=== PATIENT | female | born 1930 | race Caucasian/White ===

== ENCOUNTER 2018-06-02 16:54 | Inpatient (IN) | payer MEDICARE, BC ==
[2018-06-02 18:58] LABS: Hematocrit 36 % (35-47); Hemoglobin 11.9 g/dl (12.0-16.0); Mean Corpuscular HGB Conc 33 g/dl (31-36); Mean Corpuscular Hemoglobin 30 pg (27-31); Mean Corpuscular Volume 91 fL (80-97); Mean Platelet Volume 8.1 fL (7.4-10.4); Platelet Count 286 10^3/ul (150-450); Red Blood Count 3.95 10^6/ul (4.00-5.40); Red Cell Distribution Width 15 % (10.5-15); White Blood Count 5.6 10^3/ul (3.5-10.8)
[2018-06-02 19:02] LABS: Influenza A Molecular NEGATIVE (Negative); Influenza B Molecular NEGATIVE (Negative)
[2018-06-02 19:06] LABS: INR 0.94 (0.77-1.02)
[2018-06-02 19:16] LABS: Albumin 3.8 g/dL (3.2-5.2); Albumin/Globulin Ratio 1.4 (1-3); BUN/Creatinine Ratio 16.5 (8-20); C Reactive Protein 4.64 mg/L (<8.01); Calcium 9.2 mg/dL (8.6-10.3); EGFR African American 61.3 (>60); EGFR Non-African American 50.7 (>60); Globulin 2.7 g/dL (2-4); Potassium 4.4 mmol/L (3.5-5.0); Total Bilirubin 0.3 mg/dL (0.2-1.0); Total Protein 6.5 g/dL (6.4-8.9)
--- NOTE | 2018-06-02 19:21 | ED ---
Shortness of Breath - HPI Summary HPI Summary: Patient complains of 2 episodes of shortness of breath, one episode 2 days ago at night while trying to sleep, and one this morning. Patient states first episode was resolved with Ativan. Today's episode self resolved. No active shortness of breath here in the ED. Patient states shortness of breath is not related to exertion, has random onset. Patient denies fever, cough, sore throat , CP, N/V/D, abdominal pain, change in urine, change in BM. Patient does admit to some anxiety as her recently and her daughter recently moved out to live with boyfriend. Patient admits to anxiety over being left on her own but is clear whether shortness of breath proceeds is secondary to anxiety or anxiety secondary to shortness of breath. Medical history is PAD, HTN, HDL, osteoporosis, prior DVT. Patient no longer on Plavix, taking only baby aspirin a day. - History of Current Complaint Chief Complaint: EDShortnessOfBreath Time Seen by Provider: 06/02/18 17:45 Hx Obtained From: Patient Onset/Duration: Sudden Onset, Lasting Hours Timing: Intermittent Episodes Lasting: Current Severity: None Dyspnea At: Rest Alleviating Factors: Other Associated Signs & Symptoms: Negative - Allergy/Home Medications Allergies/Adverse Reactions: Allergies Allergy/AdvReac Type Severity Reaction Status Date / Time ibuprofen Allergy Itching Verified 06/02/18 22:36 Penicillins Allergy Rash Verified 06/02/18 22:36 Sulfa (Sulfonamide Allergy Rash Verified 06/02/18 22:36 Antibiotics) vancomycin Allergy Hives Verified 06/02/18 22:36 antibacterial soaps Allergy Hives Uncoded 06/02/18 22:36 Home Medications: Home Medications Aspirin EC TAB* [Ecotrin EC Low Dose 81 MG*] 81 mg PO DAILY 06/02/18 [History Confirmed 06/02/18] Famotidine TAB* [Pepcid 20 MG TAB*] 20 mg PO DAILY PRN 06/02/18 [History Confirmed 06/02/18] LORazepam TAB(*) [Ativan 0.5 MG TAB (*)] 0.5 mg PO BEDTIME PRN 06/02/18 [ History Confirmed 06/02/18] Lisinopril TAB* [Prinivil TAB*] 20 mg PO DAILY 06/02/18 [History Confirmed 06/02] Pantoprazole TAB * [Protonix TAB*] 40 mg PO QPM 06/02/18 [History Confirmed 12/11] Risedronate (NF) [Actonel (NF)] 150 mg PO MONTHLY 06/02/18 [History Confirmed ] Simvastatin (NF) [Zocor (NF)] 40 mg PO QPM 06/02/18 [History Confirmed 06/02/18] PMH/Surg Hx/FS Hx/Imm Hx Endocrine/Hematology History: Denies: Hx Anticoagulant Therapy, Hx Diabetes, Hx Thyroid Disease Cardiovascular History: Reports: Hx Coronary Artery Disease, Hx Hypercholesterolemia, Hx Hypertension - ON MEDS Denies: Hx Congestive Heart Failure Respiratory History: Reports: Hx Seasonal Allergies Denies: Hx Asthma, Hx Chronic Obstructive Pulmonary Disease (COPD) GI History: Reports: Hx Gall Bladder Disease, Hx Gastroesophageal Reflux Disease , Hx Obstructive Bowel, Other GI Disorders - SBO Denies: Hx Ulcer History: Denies: Hx Renal Disease Musculoskeletal History: Reports: Hx Arthritis, Hx Rheumatoid Arthritis, Hx Osteoporosis Sensory History: Reports: Hx Contacts or Glasses, Hx Vision Problem Denies: Hx Deafness Opthamlomology History: Reports: Hx Contacts or Glasses, Hx Vision Problem Psychiatric History: Reports: Hx Anxiety - Cancer History Hx Chemotherapy: No Hx Radiation Therapy: No - Surgical History Surgery Procedure, Year, and Place: SALVIARY GLAND REMOVED-SKY 1999; cholecystectomy, hysterectomy; cataracts;. total knee replacements (right and left)-2007 [facility]. BLOOD CLOT REMOVED FROM L LEG 05/2013. Left popliteal artery bypass Hx Anesthesia Reactions: No Infectious Disease History: No Infectious Disease History: Reports: Hx Shingles Denies: Hx Hepatitis, Hx Human Immunodeficiency Virus (HIV), Traveled Outside the [place] in Last 30 Days - Social History Alcohol Use: None Alcohol Amount: occ beer Substance Use Type: Reports: None Hx Tobacco Use: Yes Smoking Status (MU): Never Smoked Tobacco Have You Smoked in the Last Year: No Review of Systems Constitutional: Negative Eyes: Negative ENT: Negative Cardiovascular: Negative Positive: Shortness Of Breath Gastrointestinal: Negative Genitourinary: Negative Musculoskeletal: Negative Skin: Negative Neurological: Negative Psychological: Normal All Other Systems Reviewed And Are Negative: Yes Physical Exam - Summary Physical Exam Summary: Lung sounds clear to auscultation bilaterally. RRR. Triage Information Reviewed: Yes Vital Signs On Initial Exam: Initial Vitals Temp Pulse Resp BP Pulse Ox 98.7 F 109 20 133/88 96 06/02/18 17:00 06/02/18 17:00 06/02/18 17:00 06/02/18 17:00 06/02/18 17:00 Vital Signs Reviewed: Yes Appearance: Positive: Well-Appearing Skin: Positive: Warm Head/Face: Positive: Normal Head/Face Inspection Eyes: Positive: Normal ENT: Positive: Normal ENT inspection Neck: Positive: Supple Respiratory/Lung Sounds: Positive: Clear to Auscultation Cardiovascular: Positive: Normal Abdomen Description: Positive: Nontender Musculoskeletal: Positive: Normal Neurological: Positive: Normal Psychiatric: Positive: Normal AVPU Assessment: Alert - Renetta Coma Scale Best Eye Response: 4 - Spontaneous Best Motor Response: 6 - Obeys Commands Best Verbal Response: 5 - Oriented Coma Scale Total: 15 Diagnostics - Vital Signs Vital Signs Temp Pulse Resp BP Pulse Ox 06/02/18 18:18 92 114/59 93 06/02/18 17:50 98.9 F 06/02/18 17:00 98.7 F 109 20 133/88 96 - Laboratory Lab Results: Lab Results 06/02/18 06/02/18 06/02/18 Range/Units 18:47 18:48 18:48 WBC 5.6 (3.5-10.8) 10^3/ul RBC 3.95 L (4.00-5.40) 10^6/ul Hgb 11.9 L (12.0-16.0) g/dl Hct 36 (35-47) % MCV 91 (80-97) fL MCH 30 (27-31) pg MCHC 33 (31-36) g/dl RDW 15 (10.5-15) % Plt Count 286 (150-450) 10^3/ul MPV 8.1 (7.4-10.4) fL Neut % (Auto) Not Reportable Lymph % (Auto) Not Reportable [place] % (Auto) Not Reportable Eos % (Auto) Not Reportable Baso % (Auto) Not Reportable Absolute Neuts (auto) Not Reportable Absolute Lymphs (auto) Not Reportable Absolute Monos (auto) Not Reportable Absolute Eos (auto) Not Reportable Absolute Basos (auto) Not Reportable Absolute Nucleated RBC Not Reportable Neutrophils % Pending Nucleated RBC % Not Reportable Normal RBC Morphology Pending INR (Anticoag Therapy) 0.94 (0.77-1.02) APTT 29.0 (26.0-36.3) seconds Lactic Acid 1.5 (0.5-2.0) mmol/L Influenza A (Rapid) (Negative) Influenza B (Rapid) (Negative) 06/02/18 Range/Units 18:51 WBC (3.5-10.8) 10^3/ul RBC (4.00-5.40) 10^6/ul Hgb (12.0-16.0) g/dl Hct (35-47) % MCV (80-97) fL MCH (27-31) pg MCHC (31-36) g/dl RDW (10.5-15) % Plt Count (150-450) 10^3/ul MPV (7.4-10.4) fL Neut % (Auto) Lymph % (Auto) [place] % (Auto) Eos % (Auto) Baso % (Auto) Absolute Neuts (auto) Absolute Lymphs (auto) Absolute Monos (auto) Absolute Eos (auto) Absolute Basos (auto) Absolute Nucleated RBC Neutrophils % Nucleated RBC % Normal RBC Morphology INR (Anticoag Therapy) (0.77-1.02) APTT (26.0-36.3) seconds Lactic Acid (0.5-2.0) mmol/L Influenza A (Rapid) Negative (Negative) Influenza B (Rapid) Negative (Negative) Result Diagrams: 06/02/18 18:48 06/02/18 18:47 Lab Statement: Any lab studies that have been ordered have been reviewed, and results considered in the medical decision making process. Course/Dx - Course Course Of Treatment: Patient complains of 2 episodes of shortness of breath, one episode 2 days ago at night while trying to sleep, and one this morning. Patient states first episode was resolved with Ativan. Today's episode self resolved. No active shortness of breath here in the ED. Patient states shortness of breath is not related to exertion, has random onset. Patient denies fever, cough, sore throat, CP, N/V/D, abdominal pain, change in urine, change in BM. Patient does admit to some anxiety as her recently and her daughter recently moved out to live with boyfriend. Patient admits to anxiety over being left on her own but is clear whether shortness of breath proceeds is secondary to anxiety or anxiety secondary to shortness of breath. Medical history is PAD, HTN, HDL, osteoporosis, prior DVT. Patient no longer on Plavix, taking only baby aspirin a day. Physical exam:Lung sounds clear to auscultation bilaterally. RRR. Abdomen soft nontender. No peripheral edema. Vital signs within normal limits. Flu negative. Labs unremarkable. Chest x-ray abnormal. 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 Left lower lobe nodule. Admitted to hospitalist for further evaluation. - Diagnoses Provider Diagnoses: Shortness of breath, Pleural metastasis Discharge - Sign-Out/Discharge Documenting (check all that apply): Patient Departure All imaging exams completed and their final reports reviewed: Yes Patient Received Moderate/Deep Sedation with Procedure: No - Discharge Plan Condition: Stable Disposition: ADMITTED TO [facility] - Billing Disposition and Condition Condition: STABLE Disposition: Admitted to [facility]
[2018-06-02 19:39] LABS: ABS Basophils 0 10^3/ul (0-0.2); ABS Eosinophils 0 10^3/ul (0-0.6); ABS Neutrophils 3.2 10^3/ul (1.5-7.7); Immature Granulocytes 4 % (0-9); Lymphocytes % 24 %; Metamyelocytes % 1 % (0-2); Monocytes % 17 %; Neutrophil % 54 %; Variant Lymph % 1 % (0-6)
[2018-06-02 19:41] LABS: ABS Neutrophils 3.2 10^3/ul (1.5-7.7)
[2018-06-02 19:47] LABS: TSH (Thyroid Stimulating Horm) 2.39 mcIU/mL (0.34-5.60)
[2018-06-02] MEDS ORDERED: Iodixanol* (CONTRAST) 320 MG/ML 100 ML SDV IV ONE ×2 (20:20→23:46)
[2018-06-02] MEDS ORDERED: Famotidine TAB* 20 MG PO PRN (23:01)
[2018-06-02] MEDS ORDERED: LORazepam TAB(*) 0.5 MG PO PRN (23:01)
[2018-06-02] MEDS ORDERED: Furosemide IV* 10 MG/ML 2 ML VIAL (20 MG) IV ONE (23:04)
--- NOTE | 2018-06-03 00:25 | HP ---
CC: Dr. Tani Mills HISTORY AND PHYSICAL: DATE OF ADMISSION: 06/02/18 PRIMARY CARE PROVIDER: Dr. Tani Mills. HISTORY OF PRESENT ILLNESS: This is an 87-year-old female with past medical history of hypertension, peripheral vascular disease, rheumatoid arthritis, anxiety, who now presents to the emergency room because of shortness of breath. The patient reports that she has had unusually tough 2 years, her as well as her daughter moved out and this makes her very anxious. Now she thinks that her shortness of breath might be related to anxiety, but she is not sure which came first. She also reports significant weight loss about 30 pounds over the course of 1 year, which she thinks is related secondary to her eating issues caused by dentures. The patient has on and off shortness of breath, progressively worsening over the course of weeks, with no fevers, no chills. She does not have any cough, no hemoptysis. Also, the patient states that occasionally she will have diarrhea, however, no blood in her stool. Reports having mammogram in the fall, reportedly by patient was normal. Had a colonoscopy several years ago, and per patient was nothing to follow up on. In the emergency room, the patient had workup done including CT scan of the chest which showed signs of metastatic cancer. Subsequently hospitalist service was called. PAST MEDICAL HISTORY: 1. Hypertension. 2. Peripheral vascular disease with left leg occlusion, status post repair. 3. Rheumatoid arthritis. 4. Urinary and rectal incontinence. 5. Small Bowel Obstruction. PAST SURGICAL HISTORY: 1. Hysterectomy. 2. Cholecystectomy. 3. Uterine prolapse. HOME MEDICATIONS: 1. Ativan 0.5 mg at bedtime as needed. 2. Famotidine 20 mg daily. 3. Aspirin 81 mg daily. 4. Pantoprazole 40 mg at bedtime. 5. Lisinopril 20 mg daily. 6. Simvastatin 40 mg at bedtime. 7. Risedronate 150 mg monthly. ALLERGIES: Include IBUPROFEN, PENICILLIN, SULFA, VANCOMYCIN, ANTIBACTERIAL SOAPS. FAMILY HISTORY: Both parents had heart disease. Grandfather had stomach cancer. SOCIAL HISTORY: The patient currently lives at home alone, is a , former smoker, occasional alcohol use. Patient's healthcare proxy is her son, Luigi, phone number is [phone]. The patient wishes to be full code at this time. REVIEW OF SYSTEMS: The patient, as above, has weight loss. No fevers, no chills, no sore throat, no changes in her vision or hearing. She is having shortness of breath. No chest pain. No abdominal pain. No nausea, no vomiting. The patient does report that she has been having some heart burn lately, and is supposed to have an endoscopy at [place]. She does not have any back pain, no joint aches other than her chronic rheumatoid pain. She does not have any headaches. No focal weakness or numbness. PHYSICAL EXAMINATION GENERAL: This is an elderly female, thin appearing, lying in an ER stretcher, appears anxious. VITAL SIGNS: Blood pressure of 120/74, heart rate of 88, saturation of 92% on room air, temperature of 98.9 Fahrenheit. HEENT: Pupils are equal, round, and reactive to light. Atraumatic, normocephalic. There is no cervical lymphadenopathy. There is no oropharyngeal erythema. Oral mucosa is moist. There is no nystagmus. No JVD. LUNGS: There is no tachypnea, however, there is decreased breath sounds at the right lung field with no wheezing, rales, or rhonchi. HEART: There is no chest wall tenderness, regular rate and rhythm. No murmurs. ABDOMEN: Bowel sounds are normoactive in all 4 quadrants. Abdomen is soft, nontender, nondistended. EXTREMITIES: There is no lower extremity edema. No calf tenderness. NEUROLOGIC: Alert and oriented x3. Tongue is midline. There is symmetric smile. There is no facial droop. Speech is clear and coherent. Uvula is midline. There are no focal neurological deficits. SKIN: There are no rashes or lesions. DIAGNOSTIC STUDIES/LAB DATA: Labs showed hemoglobin of 11.9, hematocrit of 36 , platelets of 286. INR of 0.94. Chemistry shows BUN of 17, creatinine of 1.03 , glucose of 119, alkaline phosphatase of 120, TSH of 2.39, albumin of 3.8. Influenza A and B are negative. The patient had CT chest done which shows extensive right pleural metastasis and associated malignant effusion. If no history of malignancy, followup abdomen and CT is recommended along with thoracentesis and biopsy of the pleural lesion, left lower lobe nodule, no follow up indicated for that. IMPRESSION AND PLAN: 1. The patient has findings suggestive of metastatic lesions on the right lung field as well as right pleural effusion. At this point, we will start the patient on supplemental oxygen as needed to keep Oxygen > 90%. Will give one dose of Lasix. I discussed with the patient the findings of cancer are present. I discussed with the patient if she would like further treatment or management regarding this and due to her age, the treatment might be very tough for her and patient reports that she does want to pursue this, so at this point , I have ordered a CT of the abdomen and pelvis. For definitive diagnosis will need a biopsy or thoracentesis for fluid cytology. I discussed this with the patient as well, she is interested in pursuing this. 2. Hypertension. The patient takes lisinopril at home. At this point, I will hold the lisinopril given that the patient has received contrast and I will be giving her Lasix. 3. Deep vein thrombosis prophylaxis in the form of Lovenox. 4. Continue other home medications. 5. Full Code, Regular diet, activity as tolerated. [id number]/[facility] #: [id number] CASSIE
[2018-06-03] MEDS: Enoxaparin(*) 30 MG/0.3 ML SYR SUBCUT SCH ×2 (00:52→21:46)
[2018-06-03] MEDS: Aspirin EC TAB* 81 MG TAB.EC PO SCH (08:50)
--- NOTE | 2018-06-03 10:42 | CONSULT ---
Consultation - Reason for Consultation Reason for Consultation: pleural effusion, lung mets Ordering Provider: Mandi Doll Chief Complaint: SOB History of Present Illness: Very pleasant 87 yo F w PMH of recurrent SBOs of unclear etiology and RA presenting with SOB and found to have a large right pleural effusion and multiple lung lesions. Melia reports that she had ~30 lb weight loss last spring/summer, related to poorly fitting dentures and the illness and eventual of her . It has been stable since. Over the last several months she has had progressive [place] , though is still very active, living alone, doing household and animal chores. Over the last 10 days the SOB has worsened. On the day of admission she became acutely short of breath feeling like she could not catch it even at rest. She went to urgent care and was referred to the ER. Here she had a CT chest which revealed a large right pleural effusion with pleural studding and multiple right sided lung lesions. She was admitted for work up and management. She currently is breathing relatively well. Her biggest complaint over the last several months is a sensation of early satiety and increased heartburn. She actually made an apt with GI but can not get in until mid June. She denies any blood in her stool or vomiting. Her last colonoscopy was ~8 years ago and her last mammogram ~1 year ago. Allergies/Medications Medication: Aspirin (Aspirin Ec Tab*) 81 mg PO DAILY REPLACED BY [facility] Last Admin: 06/03/18 08:50 Dose: 81 mg Atorvastatin Calcium (Lipitor*) 20 mg PO QPM REPLACED BY [facility] Enoxaparin Sodium (Lovenox(*)) 30 mg SUBCUT Q24H REPLACED BY [facility] Last Admin: 06/03/18 00:52 Dose: 30 mg Famotidine (Pepcid Tab*) 20 mg PO DAILY PRN PRN Reason: INDIGESTION Lorazepam (Ativan Tab(*)) 0.5 mg PO BEDTIME PRN PRN Reason: ANXIETY Last Admin: 06/03/18 00:51 Dose: 0.5 mg Pantoprazole Sodium (Protonix Tab*) 40 mg PO QPM REPLACED BY [facility] Allergies/Adverse Reactions: Allergies Allergy/AdvReac Type Severity Reaction Status Date / Time ibuprofen Allergy Itching Verified 06/02/18 22:36 Penicillins Allergy Rash Verified 06/02/18 22:36 Sulfa (Sulfonamide Allergy Rash Verified 06/02/18 22:36 Antibiotics) vancomycin Allergy Hives Verified 06/02/18 22:36 antibacterial soaps Allergy Hives Uncoded 06/02/18 22:36 History - Past Medical History Other History: recurrent SBOs unclear etiology. rheumatoid arthritis. PVD sp bypass. HTN. hysterectomy. cholecytectomy. uterine prolapse repair - Family History Hx Family Cancer: No - Social History Other Social History: smoked for a couple of years in her 20s. exposure to insecticides. lives alone, spouse on hospice in November. Son close by and involved Review of Systems - Review of Systems General Comments: 30 lb weight loss, none since October. early satiety, reflux, SOB, arthritis. no cough, no chest pain, no headaches Physical Exam - Physical Exam Physical Examination: Vital Signs Temp Pulse Resp BP Pulse Ox 98.2 F 91 18 116/57 95 06/03/18 07:36 06/03/18 07:36 06/03/18 07:54 06/03/18 07:36 06/03/18 07:36 sitting up in nad perr eomi op moist dec bs right base s1 s2 nl soft nt +bs no le edema no breast masses no adenopathy nonfocal neurological exam A+O x 3 Results - Lab Results Lab Results: 06/02/18 06/02/18 06/02/18 18:47 18:47 18:48 WBC 5.6 RBC 3.95 L Hgb 11.9 L Hct 36 MCV 91 MCH 30 MCHC 33 RDW 15 Plt Count 286 MPV 8.1 Neut % (Auto) Not Reportable Lymph % (Auto) Not Reportable [place] % (Auto) Not Reportable Eos % (Auto) Not Reportable Baso % (Auto) Not Reportable Absolute Neuts (auto) 3.2 Absolute Lymphs (auto) Not Reportable Absolute Monos (auto) Not Reportable Absolute Eos (auto) Not Reportable Absolute Basos (auto) Not Reportable Absolute Nucleated RBC Not Reportable Immature Gran % 4 Neutrophils % 54 Band Neutrophils % 3 Lymphocytes % 24 Reactive Lymphs % 1 Monocytes % 17 Eosinophils % 0 Basophils % 0 Metamyelocytes % 1 Nucleated RBC % Not Reportable Abs Neuts (Manual) 3.2 Abs Lymphs (Manual) 1.4 Abs Monocytes (Manual) 1.0 H Absolute Eos (Manual) 0 Abs Basophils (Manual) 0 Normal RBC Morphology Normal INR (Anticoag Therapy) 0.94 APTT 29.0 Sodium 136 Potassium 4.4 [place] 102 Carbon Dioxide 26 Anion Gap 8 BUN 17 Creatinine 1.03 H Est GFR ( Amer) 61.3 Est GFR (Non-Af Amer) 50.7 BUN/Creatinine Ratio 16.5 Glucose 119 H Lactic Acid Calcium 9.2 Total Bilirubin 0.30 AST 15 ALT 8 Alkaline Phosphatase 120 H Troponin I 0.00 C-Reactive Protein 4.64 B-Natriuretic Peptide Total Protein 6.5 Albumin 3.8 Globulin 2.7 Albumin/Globulin Ratio 1.4 TSH 2.39 Influenza A (Rapid) Influenza B (Rapid) 06/02/18 06/02/18 06/02/18 18:48 18:48 18:51 WBC RBC Hgb Hct MCV MCH MCHC RDW Plt Count MPV Neut % (Auto) Lymph % (Auto) [place] % (Auto) Eos % (Auto) Baso % (Auto) Absolute Neuts (auto) Absolute Lymphs (auto) Absolute Monos (auto) Absolute Eos (auto) Absolute Basos (auto) Absolute Nucleated RBC Immature Gran % Neutrophils % Band Neutrophils % Lymphocytes % Reactive Lymphs % Monocytes % Eosinophils % Basophils % Metamyelocytes % Nucleated RBC % Abs Neuts (Manual) Abs Lymphs (Manual) Abs Monocytes (Manual) Absolute Eos (Manual) Abs Basophils (Manual) Normal RBC Morphology INR (Anticoag Therapy) APTT Sodium Potassium [place] Carbon Dioxide Anion Gap BUN Creatinine Est GFR ( Amer) Est GFR (Non-Af Amer) BUN/Creatinine Ratio Glucose Lactic Acid 1.5 Calcium Total Bilirubin AST ALT Alkaline Phosphatase Troponin I C-Reactive Protein B-Natriuretic Peptide 88 Total Protein Albumin Globulin Albumin/Globulin Ratio TSH Influenza A (Rapid) Negative Influenza B (Rapid) Negative 06/02/18 06/03/18 21:09 00:26 WBC RBC Hgb Hct MCV MCH MCHC RDW Plt Count MPV Neut % (Auto) Lymph % (Auto) [place] % (Auto) Eos % (Auto) Baso % (Auto) Absolute Neuts (auto) Absolute Lymphs (auto) Absolute Monos (auto) Absolute Eos (auto) Absolute Basos (auto) Absolute Nucleated RBC Immature Gran % Neutrophils % Band Neutrophils % Lymphocytes % Reactive Lymphs % Monocytes % Eosinophils % Basophils % Metamyelocytes % Nucleated RBC % Abs Neuts (Manual) Abs Lymphs (Manual) Abs Monocytes (Manual) Absolute Eos (Manual) Abs Basophils (Manual) Normal RBC Morphology INR (Anticoag Therapy) APTT Sodium Potassium [place] Carbon Dioxide Anion Gap BUN Creatinine Est GFR ( Amer) Est GFR (Non-Af Amer) BUN/Creatinine Ratio Glucose Lactic Acid Calcium Total Bilirubin AST ALT Alkaline Phosphatase Troponin I 0.00 0.00 C-Reactive Protein B-Natriuretic Peptide Total Protein Albumin Globulin Albumin/Globulin Ratio TSH Influenza A (Rapid) Influenza B (Rapid) - Radiology Radiology Results: CT C/A/P personally reviewed, multiple lung nodules, pleural effusion on right. no left masses, +compression Fx without clear lesions Assessment and Plan Impression: 87 yo F presenting with SOB and found to have multiple lesions in the right lung as well as a pleural effusion. This is certainly concerning for malignancy. We discussed this at length. I have recommended that she have a diagnostic and therapeutic thoracentesis, though I would NOT do this over the weekend as she is not in acute distress and the yield would be better on a weekday when it can be processed quickly. We discussed that if this is a malignant effusion there is a ~35% chance that the procedure will yield a diagnosis. If it is nondiagnostic I would biopsy one of her large lung lesions. She will also likely need an EGD at some point given her symptoms. She does look relatively comfortable but is appropriately nervous about going home when she lives alone and is afraid of getting acutely short of breath again. In terms of prognosis, I was very clear with Melia that we do NOT know this until we have a diagnosis. She has an excellent performance status and may be able to tolerate therapy depending on diagnosis.
[2018-06-03 13:48] LABS: Urine Appearance Cloudy; Urine Bacteria Absent (Absent); Urine Bilirubin Negative (Negative); Urine Blood Negative (Negative); Urine Color Yellow; Urine Glucose Negative (Negative); Urine Ketones Negative (Negative); Urine Nitrite Negative (Negative); Urine Protein Negative (Negative); Urine Red Blood Cell 2+(6-10/hpf) (Absent); Urine Specific Gravity 1.045 (1.010-1.030); Urine Squamous Epithelial Cell Present (Absent); Urine Urobilinogen Negative (Negative); Urine White Blood Cell 3+(>20/hpf) (Absent)
--- NOTE | 2018-06-03 14:22 | PN ---
Subjective Date of Service: 06/03/18 Interval History: Pt seen and examined. Meds and labs reviewed. CC: BURTON ROS: Denied PEÑA/dizziness, F/C, N/V, CP, increased cough, sputum production, abd pain, diarrhea, constipation, dysuria, myalgias, arthralgias, throat pain, and new skin lesions. The rest of the 14 point ROS are unremarkable. PHYSICAL EXAM: GEN APPEARANCE: Awake, not in acute distress HEENT: NC/AT, PERRLA, moist oral mucosa, (-) throat erythema NECK: Soft, supple, (-) cervical LAD, (-)JVD HEART: S1S2 WNL, RRR, No MRG CHEST: CTA, BL, GAE, No W/R/R ABD: Soft, ND/NT, NABS 4x Q EXT: No C/C/E SKIN: Warm to touch PSYCH: No active psychosis, hallucinations, depression, SI/HI Objective Active Medications: Aspirin (Aspirin Ec Tab*) 81 mg PO DAILY [facility] Last Admin: 06/03/18 08:50 Dose: 81 mg Atorvastatin Calcium (Lipitor*) 20 mg PO QPM [facility] Enoxaparin Sodium (Lovenox(*)) 30 mg SUBCUT Q24H [facility] Last Admin: 06/03/18 00:52 Dose: 30 mg Famotidine (Pepcid Tab*) 20 mg PO DAILY PRN PRN Reason: INDIGESTION Lorazepam (Ativan Tab(*)) 0.5 mg PO BEDTIME PRN PRN Reason: ANXIETY Last Admin: 06/03/18 00:51 Dose: 0.5 mg Pantoprazole Sodium (Protonix Tab*) 40 mg PO QPM [facility] Vital Signs - 8 hr 06/03/18 06/03/18 07:36 07:54 Temperature 98.2 F Pulse Rate 91 Respiratory 16 18 Rate Blood Pressure 116/57 (mmHg) O2 Sat by Pulse 95 Oximetry Oxygen Devices in Use Now: None Result Diagrams: 06/02/18 18:48 06/02/18 18:47 Additional Lab and Data: Lab Results 06/02/18 06/02/18 06/02/18 Range/Units 18:47 18:48 18:48 WBC 5.6 (3.5-10.8) 10^3/ul RBC 3.95 L (4.00-5.40) 10^6/ul Hgb 11.9 L (12.0-16.0) g/dl Hct 36 (35-47) % MCV 91 (80-97) fL MCH 30 (27-31) pg MCHC 33 (31-36) g/dl RDW 15 (10.5-15) % Plt Count 286 (150-450) 10^3/ul MPV 8.1 (7.4-10.4) fL Neut % (Auto) Not Reportable Lymph % (Auto) Not Reportable Weber % (Auto) Not Reportable Eos % (Auto) Not Reportable Baso % (Auto) Not Reportable Absolute Neuts (auto) Not Reportable Absolute Lymphs (auto) Not Reportable Absolute Monos (auto) Not Reportable Absolute Eos (auto) Not Reportable Absolute Basos (auto) Not Reportable Absolute Nucleated RBC Not Reportable Neutrophils % Pending Nucleated RBC % Not Reportable Normal RBC Morphology Pending INR (Anticoag Therapy) 0.94 (0.77-1.02) APTT 29.0 (26.0-36.3) seconds Lactic Acid 1.5 (0.5-2.0) mmol/L Influenza A (Rapid) (Negative) Influenza B (Rapid) (Negative) 06/02/18 Range/Units 18:51 WBC (3.5-10.8) 10^3/ul RBC (4.00-5.40) 10^6/ul Hgb (12.0-16.0) g/dl Hct (35-47) % MCV (80-97) fL MCH (27-31) pg MCHC (31-36) g/dl RDW (10.5-15) % Plt Count (150-450) 10^3/ul MPV (7.4-10.4) fL Neut % (Auto) Lymph % (Auto) Weber % (Auto) Eos % (Auto) Baso % (Auto) Absolute Neuts (auto) Absolute Lymphs (auto) Absolute Monos (auto) Absolute Eos (auto) Absolute Basos (auto) Absolute Nucleated RBC Neutrophils % Nucleated RBC % Normal RBC Morphology INR (Anticoag Therapy) (0.77-1.02) APTT (26.0-36.3) seconds Lactic Acid (0.5-2.0) mmol/L Influenza A (Rapid) Negative (Negative) Influenza B (Rapid) Negative (Negative) Microbiology and Other Data: Microbiology 06/02/18 18:30 Influenza Types A,B Antigen - Final Nasopharyngeal Specimen received for Influenza A/B Molecular testing Assess/Plan/Problems-Billing Assessment: - Patient Problems (1) Pleural effusion on right Current Visit: Yes Status: Acute Code(s): J90 - PLEURAL EFFUSION, NOT ELSEWHERE CLASSIFIED SNOMED Code(s): 58223790 Comment: -Likely malignant effusion due to signs of R. pleural masses -D/W Dr. Dent and appreciate Dr. Segura input who mentions that yield would be better if diagnostic and therapeutic thoracentesis is done on Tuesday instead while the sample is fresh and will defer -Likely cause of (2) PVD (peripheral vascular disease) Current Visit: Yes Status: Acute Code(s): I73.9 - PERIPHERAL VASCULAR DISEASE, UNSPECIFIED SNOMED Code(s): 474848870 Comment: -Continue ASA and statins (3) DVT prophylaxis Current Visit: Yes Status: Acute Code(s): HLF6580 - SNOMED Code(s): 616305615 Comment: -Continue low dose Lovenox due to advanced age Status and Disposition: -As above
--- NOTE | 2018-06-03 14:30 | CONS ---
PULMONARY CONSULTATION REPORT: DATE OF CONSULT: 06/03/18 CONSULTATION REQUESTED BY: Dr. Ector Smart. REASON FOR CONSULT: Evaluation of pleural effusion. HISTORY OF PRESENT ILLNESS: Patient is an 87-year-old female with history of recurrent small-bowel obstructions, rheumatoid arthritis, peripheral vascular disease, hypertension, hysterectomy, cholecystectomy, uterine prolapse in the past. Patient presents for evaluation of worsening shortness of breath. Patient reports worsening shortness of breath for few months. Patient reported having anxiety since her 2 years ago. She attributed shortness of breath to the anxiety. Patient also has history of chronic GERD. She has been having poor appetite recently. Patient reports that she feels full after eating small amounts of food. She attributes 30-pound weight loss over the past year. Denies recent sick contacts. Patient denies fever or chills. Denies cough or hemoptysis. Patient had colonoscopies in the past, last one 10 years ago, at which time they were normal and did not require any followup colonoscopies since. Patient, otherwise, denies diarrhea or dark stools. She has been having mammograms and last mammogram was this fall, which was normal. Further evaluation of her shortness of breath included a chest x- ray, which was followed up with CT scan. I personally reviewed chest x-ray and CT results with the patient. Patient is noted to have right-sided pleural effusion with evidence of lung nodules on the x-ray. CT scan of the chest showed moderate-sized right pleural effusion with pleural thickening. Patient also with some loculations in the pleural fluid. The pleura appears to be significantly thickened, more in certain areas. Patient also with pulmonary nodules. Patient also with atelectasis of the lungs surrounding the fluid. Patient with also evidence of centrilobular emphysematous changes. Patient noted to have a left lower lobe nodule too. No suspicious osseous lesions were noted. Evidence of enlarged precarinal node on the right side measuring 1.3 cm. PAST MEDICAL HISTORY: 1. Hypertension. 2. Peripheral vascular disease of the left leg with occlusion, status post repair. 3. Rheumatoid arthritis. 4. Urinary and rectal incontinence. 5. Small-bowel obstruction. PAST SURGICAL HISTORY: 1. Hysterectomy. 2. Cholecystectomy. 3. Uterine prolapse. MEDICATIONS: 1. Ativan. 2. Famotidine. 3. Aspirin. 4. Pantoprazole. 5. Lisinopril. 6. Simvastatin. 7. Risedronate. ALLERGIES: 1. IBUPROFEN. 2. PENICILLIN. 3. SULFA. 4. VANCOMYCIN. 5. ANTIBACTERIAL SOAPS. FAMILY HISTORY: Both parents had heart disease. Grandfather had stomach cancer. SOCIAL HISTORY: Lives alone at home. She is a former smoker and also with occasional alcohol use. Her son is her healthcare proxy and is at bedside. REVIEW OF SYSTEMS: All 14 systems reviewed and as per HPI. PHYSICAL EXAM: General: Patient is sitting up in bed, in no apparent distress. Vital Signs: Temperature 98.2, pulse 91 beats per minute, respiratory rate 16 to 18 per minute, O2 sat 95% on room air, blood pressure 116 /57. HEENT: Pupils are equal and reactive to light. Mucous membranes moist. Lungs: Diminished air entry on the right starting from the mid lung. Cardiovascular: S1 and S2 present, regular. Abdomen: Soft, nontender, and nondistended. Bowel sounds present. Extremities: Normal range of motion. No edema. Lymphatic System: No palpable cervical or supraclavicular adenopathy noted. Neurologic: Alert, awake, oriented x3. No focal deficits. DIAGNOSTIC STUDIES/LAB DATA: WBC count 5.6, hemoglobin 11.9, hematocrit 36, and platelet count 286. Sodium 136, potassium 4.4, chloride 102, bicarb 26, BUN 17, creatinine 1.03, lactic acid 1.5. Troponins within normal limits. BNP 88. Influenza A and B negative. Chest x-ray and CT scan of the chest as described above in HPI. IMPRESSION AND RECOMMENDATIONS: 87-year-old female, former smoker with shortness of breath, found to have right-sided pleural effusion with pleural thickening and possible metastatic lesions in the pleura. Patient also with pulmonary nodules in the right lung and in the major fissure. Findings highly concerning for malignancy. Will need to evaluate further. Thoracentesis would help in diagnostic and therapeutic benefit. Patient reports that she is short of breath; however, not significant and her oxygen saturations are normal and she is not requiring O2 supplementation. She does not require thoracentesis on an urgent basis today. We will perform thoracentesis with any change in symptoms or on Tuesday morning. Procedure was discussed in detail with the patient, associated risks and benefits including risk of pneumothorax were also discussed. Patient and her son at bedside are agreeable to undergoing the procedure. Further recommendations pending thoracentesis results. Rest of management as per primary team. [id number]/[facility] #: [id number] CASSIE
[2018-06-03] MEDS: Atorvastatin* 20 MG TAB PO SCH (17:03)
[2018-06-03] MEDS: Pantoprazole TAB * 40 MG TAB PO SCH (17:03)
[2018-06-03] MEDS: LORazepam TAB(*) 1 MG PO PRN (21:17)
[2018-06-04 06:59] LABS: Hematocrit 32 % (35-47); Hemoglobin 10.7 g/dl (12.0-16.0); Mean Corpuscular HGB Conc 34 g/dl (31-36); Mean Corpuscular Hemoglobin 30 pg (27-31); Mean Corpuscular Volume 90 fL (80-97); Mean Platelet Volume 8.5 fL (7.4-10.4); Platelet Count 244 10^3/ul (150-450); Red Blood Count 3.52 10^6/ul (4.00-5.40); Red Cell Distribution Width 15 % (10.5-15); White Blood Count 4.6 10^3/ul (3.5-10.8)
[2018-06-04 07:30] LABS: Albumin 3.3 g/dL (3.2-5.2); Albumin/Globulin Ratio 1.4 (1-3); BUN/Creatinine Ratio 19.6 (8-20); EGFR African American 69.9 (>60); EGFR Non-African American 57.7 (>60); Globulin 2.4 g/dL (2-4); Magnesium 1.9 mg/dL (1.9-2.7); Phosphorus 4.5 mg/dL (2.5-5.0); Potassium 4.2 mmol/L (3.5-5.0); Total Bilirubin 0.4 mg/dL (0.2-1.0); Total Protein 5.7 g/dL (6.4-8.9)
[2018-06-04] MEDS: Aspirin EC TAB* 81 MG TAB.EC PO SCH (08:45)
--- NOTE | 2018-06-04 13:26 | PN ---
Subjective Date of Service: 06/04/18 Interval History: Pt seen and examined. Meds and labs reviewed. CC: N/A ROS: Denied PEÑA/dizziness, F/C, N/V, CP, SOB, increased cough, sputum production , abd pain, diarrhea, constipation, dysuria, myalgias, arthralgias, throat pain , and new skin lesions. The rest of the 14 point ROS are unremarkable. PHYSICAL EXAM: GEN APPEARANCE: Awake, not in acute distress HEENT: NC/AT, PERRLA, moist oral mucosa, (-) throat erythema NECK: Soft, supple, (-) cervical LAD, (-)JVD HEART: S1S2 WNL, RRR, No MRG CHEST: CTA, BL, GAE, No W/R/R ABD: Soft, ND/NT, NABS 4x Q EXT: No C/C/E SKIN: Warm to touch PSYCH: No active psychosis, hallucinations, depression, SI/HI Objective Active Medications: Aspirin (Aspirin Ec Tab*) 81 mg PO DAILY [facility] Last Admin: 06/04/18 08:45 Dose: 81 mg Atorvastatin Calcium (Lipitor*) 20 mg PO QPM [facility] Last Admin: 06/03/18 17:03 Dose: 20 mg Enoxaparin Sodium (Lovenox(*)) 30 mg SUBCUT Q24H [facility] Last Admin: 06/03/18 21:46 Dose: 30 mg Famotidine (Pepcid Tab*) 20 mg PO DAILY PRN PRN Reason: INDIGESTION Lorazepam (Ativan Tab(*)) 1 mg PO BEDTIME PRN PRN Reason: ANXIETY Last Admin: 06/03/18 21:17 Dose: 1 mg Pantoprazole Sodium (Protonix Tab*) 40 mg PO QPM [facility] Last Admin: 06/03/18 17:03 Dose: 40 mg Vital Signs - 8 hr 06/04/18 06/04/18 06/04/18 08:00 08:09 11:08 Temperature 97.4 F 98.0 F Pulse Rate 92 102 Respiratory 16 16 18 Rate Blood Pressure 128/58 119/60 (mmHg) O2 Sat by Pulse 94 98 Oximetry Oxygen Devices in Use Now: None Result Diagrams: 06/04/18 06:28 06/04/18 06:28 Additional Lab and Data: Lab Results 06/02/18 06/02/18 06/02/18 Range/Units 18:47 18:48 18:48 WBC 5.6 (3.5-10.8) 10^3/ul RBC 3.95 L (4.00-5.40) 10^6/ul Hgb 11.9 L (12.0-16.0) g/dl Hct 36 (35-47) % MCV 91 (80-97) fL MCH 30 (27-31) pg MCHC 33 (31-36) g/dl RDW 15 (10.5-15) % Plt Count 286 (150-450) 10^3/ul MPV 8.1 (7.4-10.4) fL Neut % (Auto) Not Reportable Lymph % (Auto) Not Reportable [place] % (Auto) Not Reportable Eos % (Auto) Not Reportable Baso % (Auto) Not Reportable Absolute Neuts (auto) Not Reportable Absolute Lymphs (auto) Not Reportable Absolute Monos (auto) Not Reportable Absolute Eos (auto) Not Reportable Absolute Basos (auto) Not Reportable Absolute Nucleated RBC Not Reportable Neutrophils % Pending Nucleated RBC % Not Reportable Normal RBC Morphology Pending INR (Anticoag Therapy) 0.94 (0.77-1.02) APTT 29.0 (26.0-36.3) seconds Lactic Acid 1.5 (0.5-2.0) mmol/L Influenza A (Rapid) (Negative) Influenza B (Rapid) (Negative) 06/02/18 Range/Units 18:51 WBC (3.5-10.8) 10^3/ul RBC (4.00-5.40) 10^6/ul Hgb (12.0-16.0) g/dl Hct (35-47) % MCV (80-97) fL MCH (27-31) pg MCHC (31-36) g/dl RDW (10.5-15) % Plt Count (150-450) 10^3/ul MPV (7.4-10.4) fL Neut % (Auto) Lymph % (Auto) [place] % (Auto) Eos % (Auto) Baso % (Auto) Absolute Neuts (auto) Absolute Lymphs (auto) Absolute Monos (auto) Absolute Eos (auto) Absolute Basos (auto) Absolute Nucleated RBC Neutrophils % Nucleated RBC % Normal RBC Morphology INR (Anticoag Therapy) (0.77-1.02) APTT (26.0-36.3) seconds Lactic Acid (0.5-2.0) mmol/L Influenza A (Rapid) Negative (Negative) Influenza B (Rapid) Negative (Negative) Microbiology and Other Data: Microbiology 06/02/18 18:30 Influenza Types A,B Antigen - Final Nasopharyngeal Specimen received for Influenza A/B Molecular testing Assess/Plan/Problems-Billing Assessment: - Patient Problems (1) Pleural effusion on right Current Visit: Yes Status: Acute Code(s): J90 - PLEURAL EFFUSION, NOT ELSEWHERE CLASSIFIED SNOMED Code(s): 54390908 Comment: -Likely malignant effusion due to signs of R. pleural masses -D/W Dr. Dent and appreciate Dr. Segura input who mentions that yield would be better if diagnostic and therapeutic thoracentesis is done on Tuesday instead while the sample is fresh and will defer -Per pt, Dr. Dent plans to perform diagnostic and therapeutic thora tomorrow at 7AM -Labs sent for coags and CBC in lieu of planned procedure -Likely cause of BURTON (2) PVD (peripheral vascular disease) Current Visit: Yes Status: Acute Code(s): I73.9 - PERIPHERAL VASCULAR DISEASE, UNSPECIFIED SNOMED Code(s): 616843065 Comment: -Continue ASA and statins (3) DVT prophylaxis Current Visit: Yes Status: Acute Code(s): JCX5460 - SNOMED Code(s): 699397143 Comment: -Continue low dose Lovenox due to advanced age Status and Disposition: -As above -On review of U/A, Squamous epth cells present indicating U/A may not have been clean catch; in addition, pt is asymptomatic in terms of urinary complaints--- no abx indicated at this time
[2018-06-04] MEDS: Pantoprazole TAB * 40 MG TAB PO SCH (17:33)
[2018-06-04] MEDS: Atorvastatin* 20 MG TAB PO SCH (17:33)
[2018-06-04] MEDS: LORazepam TAB(*) 1 MG PO PRN (20:20)
[2018-06-04] MEDS: Enoxaparin(*) 30 MG/0.3 ML SYR SUBCUT SCH (23:20)
[2018-06-05 06:42] LABS: Hematocrit 33 % (35-47); Hemoglobin 10.7 g/dl (12.0-16.0); Mean Corpuscular HGB Conc 33 g/dl (31-36); Mean Corpuscular Hemoglobin 30 pg (27-31); Mean Corpuscular Volume 90 fL (80-97); Platelet Count 239 10^3/ul (150-450); Red Blood Count 3.61 10^6/ul (4.00-5.40); Red Cell Distribution Width 15 % (10.5-15); White Blood Count 4.6 10^3/ul (3.5-10.8)
[2018-06-05 06:51] LABS: Activated Partial Thrombo Time 28.5 seconds (26.0-36.3); INR 0.9 (0.77-1.02)
[2018-06-05 07:00] LABS: Anion Gap 7 mmol/L (2-11); BUN/Creatinine Ratio 23.3 (8-20); Blood Urea Nitrogen 21 mg/dL (6-24); CO2 Carbon Dioxide 25 mmol/L (22-32); Chloride 104 mmol/L (101-111); EGFR African American 71.7 (>60); EGFR Non-African American 59.2 (>60); Glucose 97 mg/dL (70-100); Potassium 4.4 mmol/L (3.5-5.0); Sodium 136 mmol/L (135-145)
[2018-06-05 07:15] LABS: % Iron Saturation 17 % (15-55); Iron 46 ug/dL (50-212); Total Iron Binding Capacity 265 mcg/dL (250-450); Transferrin 189 mg/dL (203-362)
[2018-06-05 07:39] LABS: Ferritin 61.8 ng/mL (11-307)
[2018-06-05 07:40] LABS: Body Fluid Source Pleural Fluid
[2018-06-05 07:43] LABS: Folate 13.56 ng/mL (>3.99)
[2018-06-05] MEDS: Aspirin EC TAB* 81 MG TAB.EC PO SCH (08:46)
[2018-06-05 09:42] LABS: Body Fluid Mono 46 %; Body Fluid Other Cells 1
[2018-06-05 12:07] VITALS: BP 122/62
--- NOTE | 2018-06-05 16:42 | CONS ---
CC: Dr. Mills * CONSULTATION REPORT: DATE OF CONSULT: 06/05/18 REQUESTING PHYSICIAN: Dr. Smart. INDICATION: Upset stomach. NARRATIVE: Ms. 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 She underwent a diagnostic and therapeutic thoracentesis this morning. GI was called due to dyspepsia. The patient states that she has a feeling of fullness whenever she eats, some nausea, no vomiting, but she has had dry heaves. No change in her bowel habits. She denies any black stools or bright red blood. She tells me she did have a colonoscopy between 5 and 10 years ago in [place], [place] and was told by the integration specialist that she will never need another colonoscopy. She does not have any heartburn. She states when she feels full, she will take a Pepcid and it relieves her symptoms. No dysphagia or odynophagia. She is feeling slightly better since the thoracentesis and did eat well at lunch. PAST MEDICAL HISTORY: Please see the HPI. She additionally has urinary and fecal incontinence, hypertension. PAST SURGICAL HISTORY: Includes cholecystectomy and hysterectomy. MEDICATIONS AT HOME: Include: 1. Ativan. 2. Famotidine. 3. Aspirin. 4. Pantoprazole. 5. Lisinopril. 6. Simvastatin. ALLERGIES: IBUPROFEN, PENICILLIN, SULFA, VANCO. FAMILY HISTORY: Coronary artery disease, stomach cancer. SOCIAL HISTORY: She lives alone. Denies any tobacco or alcohol use. REVIEW OF SYSTEMS: Twelve systems were reviewed and other than that mentioned in the HPI were unremarkable. PHYSICAL EXAM: Temperature is 98.1, blood pressure is 122/62, pulse is 95, respiratory rate of 16, O2 sat is 94%. General: Elderly-appearing female, in no apparent distress, alert, oriented, pleasant, fluent. HEENT: Mucous membranes are moist without lesions, ulcers, or exudates. Neck is supple. Trachea is midline. Head is normocephalic, atraumatic. Heart: Regular rate and rhythm. Lungs: Clear to auscultation bilaterally. She does have a Band- Aid over her thoracentesis site, slight pain around it. Abdomen: Positive bowel sounds. Soft, nontender, nondistended. No hepatosplenomegaly, masses, rebound, or guarding. Skin is warm and dry. DIAGNOSTIC STUDIES/LAB DATA: Labs of note, white count is 4.6; hemoglobin is 10.7 down from admission at 11.9, her baseline appears to be in the 12s. BUN is 21, creatinine is normal at 0.9. She does have a CT abdomen and pelvis, which showed a large amount of fluid. 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 ASSESSMENT AND PLAN: This is a pleasant 87-year-old female with early satiety and dyspepsia. Her hemoglobin has decreased just a little bit. She is on aspirin every day. She does take Pepcid. She currently ate breakfast and lunch today. She is being discharged by her primary care team. We will make arrangements for an outpatient EGD at the hospital. [id number]/[facility] #: [id number] CASSIE
--- NOTE | 2018-06-05 16:47 | PN ---
Progress Note - Progress Note Date of Service: 06/05/18 - Pulm f/u note Note: Pt seen and examined at bedside. reports SOB is improved after Lasix. No fever, cough Active Medications Generic Name Dose Route Start Last Admin Trade Name Freq PRN Reason Stop Dose Admin Aspirin 81 mg 06/03/18 09:00 06/05/18 08:46 Aspirin Ec Tab* PO 81 mg DAILY [facility] Administration Atorvastatin Calcium 20 mg 06/03/18 18:00 06/04/18 17:33 Lipitor* PO 20 mg QPM [facility] Administration Enoxaparin Sodium 30 mg 06/02/18 23:45 06/04/18 23:20 Lovenox(*) SUBCUT Not Given Q24H [facility]SY Famotidine 20 mg 06/02/18 23:01 Pepcid Tab* PO DAILY PRN INDIGESTION Lorazepam 1 mg 06/03/18 17:47 06/04/18 20:20 Ativan Tab(*) PO 1 mg BEDTIME PRN Administration ANXIETY Pantoprazole Sodium 40 mg 06/03/18 18:00 06/04/18 17:33 Protonix Tab* PO 40 mg QPM [facility]ISSY Administration Vital Signs Temp Pulse Resp BP Pulse Ox 98.1 F 95 16 122/62 94 06/05/18 10:51 06/05/18 10:51 06/05/18 10:51 06/05/18 10:51 06/05/18 10:51 O/E: Pt in NAD HEENT: PERRLA Lungs: Diminished air entry on rt side CVS; S1, S2+, regular Abd: Soft, BS+ Ext: Normal ROM Neuro: No focal deficits Laboratory Results - last 24 hr 06/02/18 06/05/18 06/05/18 18:48 06:35 06:35 WBC RBC Hgb Hct MCV MCH MCHC RDW Plt Count MPV Hem Pathologist Commnt INR (Anticoag Therapy) 0.90 APTT 28.5 Sodium 136 Potassium 4.4 Chloride 104 Carbon Dioxide 25 Anion Gap 7 BUN 21 Creatinine 0.90 Est GFR ( Amer) 71.7 Est GFR (Non-Af Amer) 59.2 BUN/Creatinine Ratio 23.3 H Glucose 97 Calcium 9.0 Iron 46 L TIBC 265 % Saturation 17 Unsat Iron Binding < 250 Transferrin 189 L Ferritin 61.8 Vitamin B12 131 L Folate 13.56 Fluid Source Fluid Volume Fluid Color Fluid Appearance Fluid WBC Fluid RBC Fluid Tot Cell Count Fluid Neutrophils Fluid Lymphocytes Fluid Monocytes Fluid Other Cells Fluid Cell Count Rvw By 06/05/18 06/05/18 06:35 07:25 WBC 4.6 RBC 3.61 L Hgb 10.7 L Hct 33 L MCV 90 MCH 30 MCHC 33 RDW 15 Plt Count 239 MPV 8.0 Hem Pathologist Commnt INR (Anticoag Therapy) APTT Sodium Potassium Chloride Carbon Dioxide Anion Gap BUN Creatinine Est GFR ( Amer) Est GFR (Non-Af Amer) BUN/Creatinine Ratio Glucose Calcium Iron TIBC % Saturation Unsat Iron Binding Transferrin Ferritin Vitamin B12 Folate Fluid Source Pleural fluid Fluid Volume 8 Fluid Color Yellow Fluid Appearance Cloudy Fluid WBC 1019 Fluid RBC 2706 Fluid Tot Cell Count 100 Fluid Neutrophils Not Reportable Fluid Lymphocytes 54 Fluid Monocytes 46 Fluid Other Cells 1 Fluid Cell Count Rvw By I/R: 87 y o f with right pl effusion, pl thickening and pl mass concerning for malignancy Pt underwent thoracentesis with removal of 1L of pl fluid Cytology showed atypical cells Pt to have pl biopsy if definitive dx not obtained from thoracentesis No PTX post procedure
--- NOTE | 2018-06-05 20:33 | DS ---
CC: Dr. Mandi Doll; Dr. Izaiah Devi; Dr. Saranya Dent; Dr. Tani Mills ; Dr. Trent * DISCHARGE SUMMARY: DATE OF ADMISSION: DATE OF DISCHARGE: 06/05/18 DISCHARGE DIAGNOSES: As follows: 1. Right pleural effusion likely due to malignancy; cytology, status post diagnostic and therapeutic thoracentesis is pending. 2. Anemia of chronic disease concomitant with mild iron deficiency anemia. 3. Peripheral vascular disease, history of. 4. Feeling of dyspepsia and early satiety; the patient to call for GI appointment for an outpatient endoscopy. DISCHARGE MEDICATIONS: As follows: 1. Aspirin 81 mg p.o. daily. 2. Famotidine 20 mg p.o. daily. 3. Lorazepam 0.5 to 1 mg p.o. q.h.s. p.r.n. 4. Pantoprazole 40 mg p.o. q.p.m. 5. Simvastatin 40 mg p.o. q.p.m. 6. Ascorbic acid 500 mg p.o. daily for 30 days. 7. Ferrous sulfate 325 mg p.o. daily for 30 days. 8. Risedronate 150 mg p.o. monthly. HISTORY OF PRESENT ILLNESS/HOSPITAL COURSE: The patient is an 87-year-old lady with history of hypertension, peripheral vascular disease and rheumatoid arthritis, who presented to the emergency room on 06/02/18 for shortness of breath, which she initially thought was due to anxiety and on further and subsequent analysis mentioned that this was really more of dyspnea on exertion. 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 She also complained of some early satiety and dyspepsia along with a 30 pound weight loss for about a year and prior to her discharge, I have spoken with Dr. Mack who mentioned that he would be happy to see her for an outpatient EGD. The patient had been given Dr. Mack's office, so that she can call his office directly to make an appointment that is most convenient for her schedule. As far as her pleural effusion is concerned, she had a diagnostic and therapeutic thoracentesis the day after admission and a postprocedural x-ray did not suggest any pneumothorax and in fact suggest stable pleural and parenchymal nodularity without any appreciable pneumothorax seen. The patient remains hemodynamically stable and currently awaiting results of the cell blocked, status post thoracentesis as described. She will be discharged home with iron supplementations given her iron studies suggests anemia of chronic disease likely due to above, concomitant with mild iron deficiency anemia. She had only been given 1 month's worth of vitamin C and will defer with the patient 's PCP and Hem/Onc if further oral supplementations after this prescription expires and will defer. The patient had been advised to follow up and/or call her PCP within 3 days post discharge. She is to follow up with Dr. Trent 1 week post discharge. She had been advised to call her office to make/confirm her appointment. She was advised to call Dr. Mack's office to set up an appointment for an outpatient endoscopy/EGD procedure. She had been advised that if her symptoms resume or develop new ones or feel unwell for any reason, to call her PCP first. If her PCP cannot entertain her due to scheduling issues alone, she is to call [facility] if the issue is considered nonemergent. She was advised to call my office regarding any questions, concerns or further clarifications regarding her discharge plans and her prescriptions and to take her medications as prescribed. REVIEW OF SYSTEMS: She currently denied any headaches, dizziness, fevers, chills, nausea, vomiting, chest pain, shortness of breath, increased coughing or sputum production, abdominal pain, diarrhea, constipation, pain and/or increased frequency on urination, myalgias or arthralgias, throat pain or new skin lesions. The rest of the 14-point review of systems is otherwise unremarkable. PHYSICAL EXAMINATION: Shows the most recent vital signs of records with blood pressure of 122/62, 98.1 degrees Fahrenheit, 95 beats per minute heart rate, 16 per minute respiratory rate, saturating at 94% on room air. General Appearance : The patient is awake, alert, and oriented x3, not in acute distress. HEENT: Normocephalic, atraumatic. PERRLA. Extraocular muscles intact. Negative for icterus. Moist oral mucosa. Negative throat erythema. Neck is soft, supple with no cervical lymphadenopathy. No JVD. Heart: S1 and S2 within normal limits. Regular rate and rhythm. No murmurs, rubs or gallops. Chest: Clear to auscultation bilaterally. Good air entry. No wheezes, rales or rhonchi. Abdomen is soft, nondistended, nontender. Normoactive bowel sounds x4 quadrants. Extremities: No cyanosis, clubbing or edema. Psychiatric: No active psychosis, depression, suicidal or homicidal ideations. Skin is warm to touch. TIME SPENT: The total time spent evaluating the patient, reviewing pertinent data, and appropriate documentation is 45 minutes. [id number]/[facility] #: [id number] [facility]
--- NOTE | 2018-06-05 21:17 | PRO ---
THORACENTESIS REPORT: DATE OF PROCEDURE: 06/05/18 - ROOM #407 ANESTHESIA: 1% lidocaine. DESCRIPTION OF PROCEDURE: Informed consent was obtained from the patient prior to the procedure after all the risks and benefits were thoroughly explained. Appropriate time-out was agreed on by the attending staff. The patient was sitting up and leaning forward. Portable ultrasound was utilized at bedside to localize [id number] amounts of right pleural effusion, also seen are pleural masses. CareFusion 8-Kazakh thoracentesis catheter was utilized. Strict aseptic precautions and all barrier techniques were followed. Area was sterilized with chlorhexidine. 1% lidocaine was then instilled subcutaneously, transdermally down into the pleural space taking precautions. #11 scalpel blade was utilized to make stab incision. CareFusion 8-Kazakh thoracentesis catheter was then inserted under manual suction. Catheter was left in place and needle was removed. 1 L of dark yellow slightly turbid fluid was removed under manual suction. Catheter was then removed. Fluid was sent into the lab for cytological and biochemical examination. The patient tolerated the procedure well. Postprocedure chest x-ray was ordered and pending at the time of dictation. [id number]/[facility] #: [id number] [facility]
[2018-06-06 22:05] LABS: Lactate Dehydrogenase, BF 289 U/L
== END 2018-06-05 16:35 | disposition home or self-care (01) | DRG 187 ==
LOC: ED 16:54 → MED 23:02
PROVIDERS: ADMIT Internal Medicine; ATTEND Student in an Organized Health Care Education/Training Program
PROC: 0W993ZX Drainage of Right Pleural Cavity, Percutaneous Approach, Diagnostic (ICD-10-PCS; principal; 2018-06-05)
DX: J90 Pleural effusion, not elsewhere classified (principal); J98.11 Atelectasis; I73.9 Peripheral vascular disease, unspecified; R15.9 Full incontinence of feces; M06.9 Rheumatoid arthritis, unspecified; D63.8 Anemia in other chronic diseases classified elsewhere; D50.9 Iron deficiency anemia, unspecified; R10.13 Epigastric pain; I10 Essential (primary) hypertension; F41.9 Anxiety disorder, unspecified; R68.81 Early satiety; R91.8 Other nonspecific abnormal finding of lung field; R32 Unspecified urinary incontinence; Z87.891 Personal history of nicotine dependence; Z82.49 Family history of ischemic heart disease and other diseases of the circulatory system; Z80.0 Family history of malignant neoplasm of digestive organs; Z79.82 Long term (current) use of aspirin; Z79.899 Other long term (current) drug therapy; Z88.6 Allergy status to analgesic agent; Z88.1 Allergy status to other antibiotic agents; Z88.0 Allergy status to penicillin; Z88.2 Allergy status to sulfonamides; Z88.8 Allergy status to other drugs, medicaments and biological substances; Z91.048 Other nonmedicinal substance allergy status
CPT/HCPCS: 36415; 71045; 71046; 71260; 74177; 80048; 80053; 81003; 81015; 82607; 82728; 82746; 82945; 83540; 83550; 83605; 83615; 83735; 83880; 83921; 84100; 84157; 84443; 84484; 85025; 85027; 85060; 85610; 85730; 86140; 87070; 87077; 87086; 87186; 87205; 88112; 88305; 88341; 88342; 89051; 93005; 99223; 99284; A9270-GY; J1650; J1940; Q9967

== ENCOUNTER → 2018-07-03 12:38 | Day surgery (SDC) | payer MEDICARE, BC ==
--- NOTE | 2018-07-03 17:24 | PRO ---
CC: Terra Trent MD; Tani Mills MD * DATE OF PROCEDURE: 07/03/18 - [facility] DATE OF : 12/27/30 SURGEON: Don Mejia MD LOG LOADER: None. ANESTHESIA: 1% lidocaine plain used locally. PREPROCEDURE DIAGNOSIS: Recurrent right pleural effusion. POSTPROCEDURE DIAGNOSIS: Recurrent right pleural effusion. PROCEDURE: PleurX catheter placement, right side. ESTIMATED BLOOD LOSS: Minimal. SPECIMEN: None. DRAIN: PleurX catheter. COMPLICATIONS: None. DESCRIPTION OF PROCEDURE: The patient was positioned semi-Leonardo on the stretcher. Right chest was marked for the proposed site of the catheter and then she was prepped and draped in usual sterile fashion and time-out was performed. Local anesthetic was infiltrated at the insertion and exit sites. The proposed line of the tunnel was infiltrated with the local anesthetic. The access catheter was inserted into the pleural cavity and pleural fluid was withdrawn. The needle was withdrawn and then a guidewire was advanced through the catheter into the pleural space. The catheter was removed. Incisions were made at the guidewire insertion site and at the exit site. The PleurX catheter was back tunneled from the exit site to the guidewire insertion site ensuring that the cuff was at least 1 cm beyond the exit site. The catheter was cut approximately 4 cm shorter. The tract was then dilated using a Seldinger technique with a 12-mm dilator and then the dilator and peel-away sheath were advanced into the pleural cavity. The dilator and wire were removed. The catheter was inserted into the pleural space. Catheter course was assured that it was not kinked. The entry site was closed with interrupted 3-0 Vicryl. The exit site was sutured with 2-0 silk and this was tied around the catheter and the catheter was thus secured. Then, using a bedside suction, the chest was evacuated of 1350 mL of straw-colored clear pleural fluid. The patient tolerated this well. The PleurX catheter was then capped and the dressings were applied. The patient tolerated the procedure well, was transferred to Recovery, and postprocedure x-ray was pending at the time of this dictation. There were no immediate complications. [id number]/[facility] #: [id number] [facility]
== END | disposition home or self-care (01) ==
LOC: OR 12:38
PROVIDERS: ATTEND Surgery
DX: J90 Pleural effusion, not elsewhere classified (principal); R07.9 Chest pain, unspecified; Z87.891 Personal history of nicotine dependence; Z88.0 Allergy status to penicillin; Z88.8 Allergy status to other drugs, medicaments and biological substances; I10 Essential (primary) hypertension; C34.90 Malignant neoplasm of unspecified part of unspecified bronchus or lung; K21.9 Gastro-esophageal reflux disease without esophagitis; E78.5 Hyperlipidemia, unspecified; M81.0 Age-related osteoporosis without current pathological fracture; Z86.718 Personal history of other venous thrombosis and embolism; M19.90 Unspecified osteoarthritis, unspecified site
CPT/HCPCS: 32551; 71045

== ENCOUNTER 2018-07-10 16:04 | Emergency (ER) | payer MEDICARE, BC ==
--- OUTSIDE RECORDS SUMMARY | 2018-07-10 16:26 | XMS REPORT | Continuity of Care Document ---
:1930 External Reference #:[id number] Author Name Mike Kimitlyn Care Team Providers Name Role Phone Tani Mills MD Primary Care Physician Unavailable Payers Date Identification Numbers Payment Provider Subscriber Effective: 2005 Policy Number: [id number] Medicare Melia Sesay PayID: [id number] [address] [place] [address] Effective: 2011 Policy Number: [id number] BS [employer]ets Melia Sesay PayID: [id number] [address] [address] [place] [address] Expires: 2009 Policy Number: [id number] BS Of POLLO Sesay PayID: [id number] [address] [address] [place] [address] Effective: 2009 Policy Number: [id number] BS Of [employer] Sesay Expires: 2011 PayID: [id number] [address] [address] [place] [address] Advance Directives Description No Information Available Problems Description No Information Family History Date Family Member(s) Observation Comments General Heart Disease Social History Type Date Description Comments Sex Unknown Lives With Spouse ETOH Use Occasionally consumes alcohol Tobacco Use Start: Unknown End: Patient is a former 6-8 year 1PPD Unknown smoker smoking history Smoking Status Reviewed: 06/20/18 Patient is a former 6-8 year 1PPD smoker smoking history Exercise Does not exercise Type/Frequency Allergies, Adverse Reactions, Alerts Date Description Reaction Status Severity Comments 05/20/2014 Penicillin Active 05/20/2014 Sulfa Antibiotics Active 05/20/2014 Vancomycin Active 05/20/2014 Antibacterial Soap Active 05/20/2014 Motrin Active Medications Medication Date Status Form Strength Qnty SIG Indications Ordering Provider Pantoprazole Active Tablets DR 40mg 1 by mouth Unknown Sodium 000 every day Lisinopril Active Tablets 20mg 1 by mouth Unknown 000 every day Simvastatin Active Tablets 40mg 1 by mouth Unknown 000 every night at bedtime Caltrate 600+D Active as Unknown 000 directed Aspirin Low Active Tablets 81mg 1 by mouth Unknown Dose 000 every day Pepcid Active as Unknown 000 directed Lorazepam Active Tablets 1mg as Unknown 000 directed Plavix Active Tablets 75mg 1 by mouth Unknown 000 every day Probiotic Daily Active Capsules 1 by mouth Unknown 000 every day Famotidine Active Tablets 20mg 1 tab by Unknown 000 mouth twice a day as needed Celebrex Hx Capsules 100mg as Unknown 000 - directed 016 Gabapentin Hx Capsules 100mg as Unknown 000 - directed 016 Medications Administered in Office Medication Date Status Form Strength Qnty SIG Indications Ordering Provider Depomedrol Administered Injection Dirk Florencio, 40MG 017 M.D. Depomedrol Administered Injection Dirk Florencio, 40MG 016 M.D. Depomedrol Administered Injection Dirk Florencio, 80MG 015 M.D. Depomedrol Administered Injection Liana 80MG 015 Liptak, RPA-C Depomedrol Administered Injection Dirk Florencio, 80MG 015 M.D. Depomedrol Administered Injection Dirk Florencio, 20MG 012 M.D. Depomedrol Administered Injection Dirk Florencio, 40MG 011 M.D. Immunizations Description No Information Available Vital Signs Date Vital Result Comment 06/20/2018 11:33am Height 62 inches 5'2" Weight 97.25 lb Heart Rate 60 /min BP Systolic Sitting 110 mmHg Lue regular cuff BP Diastolic Sitting 66 mmHg Lue regular cuff Respiratory Rate 12 /min BMI (Body Mass Index) 17.8 kg/m2 Neck Circumference in inches 12.50 04/28/2016 1:15pm Height 62 inches 5'2" Weight 118.00 lb Pain Level 5 BMI (Body Mass Index) 21.6 kg/m2 07/30/2015 3:30pm Height 62 inches 5'2" Weight 125.00 lb Heart Rate 67 /min BP Systolic 150 mmHg BP Diastolic 78 mmHg Pain Level 6 BMI (Body Mass Index) 22.9 kg/m2 02/10/2015 1:55pm Height 62 inches 5'2" Weight 125.00 lb Pain Level 4 BMI (Body Mass Index) 22.9 kg/m2 09/11/2014 1:26pm Height 62 inches 5'2" Weight 125.00 lb Pain Level 5 BMI (Body Mass Index) 22.9 kg/m2 05/20/2014 10:27am Height 62 inches 5'2" Weight 125.00 lb Heart Rate 62 /min BP Systolic 125 mmHg BP Diastolic 70 mmHg BMI (Body Mass Index) 22.9 kg/m2 Results Test Date Facility Test Result H/L Range Note Order 06/20/2018 [facility] In-House 6 Minute Walk <pending> Platelet Count 06/16/2018 [facility] Platelet Count 351 10^3/uL N 150-450 [facility] [place] [place] [address] [phone] Mean Platelet Volume 8.3 fL N 7.4-10.4 Inr/Protime 06/16/2018 [facility] Inr 0.96 N 0.77-1.[address] [place] [address] [phone] Laboratory test 06/16/2018 [facility] Partial 30.2 seconds N 26.0-36.3 finding [address] [facility] [place] [address] PTT [phone] Procedures Date Code Description Status 06/20/2018 45353 [facility] Measurement Heart Rate, Completed Oximetry 04/28/2016 Inject/Drain Joint/Bursa Major W/O US Completed 07/30/2015 Inject/Drain Joint/Bursa Major W/O US Completed 02/10/2015 Inject/Drain Joint/Bursa Major W/O US Completed 09/11/2014 Inject/Drain Joint/Bursa Major W/O US Completed 05/20/2014 75086 Rad Shoulder Comp, Min. 2 Views Completed 05/20/2014 Inject/Drain Joint/Bursa Major W/O US Completed 09/10/2013 62295 Hyperbaric Oxygen Therapy By Physician Completed 09/06/2013 56384 Hyperbaric Oxygen Therapy By Physician Completed 09/04/2013 73163 Hyperbaric Oxygen Therapy By Physician Completed 08/30/2013 66034 Hyperbaric Oxygen Therapy By Physician Completed 08/30/2013 58822 Removal Devitalization Tissue Wound Less Than Equal 20 Completed Square CM 08/29/2013 19274 Hyperbaric Oxygen Therapy By Physician Completed 08/28/2013 40909 Hyperbaric Oxygen Therapy By Physician Completed 08/23/2013 42055 Hyperbaric Oxygen Therapy By Physician Completed 08/22/2013 36401 Hyperbaric Oxygen Therapy By Physician Completed 08/21/2013 76931 Hyperbaric Oxygen Therapy By Physician Completed 08/16/2013 17932 Removal Devitalization Tissue Wound Less Than Equal 20 Completed Square CM 08/16/2013 70010 Hyperbaric Oxygen Therapy By Physician Completed 08/15/2013 70427 Hyperbaric Oxygen Therapy By Physician Completed 08/14/2013 84370 Hyperbaric Oxygen Therapy By Physician Completed 08/10/2013 33835 Hyperbaric Oxygen Therapy By Physician Completed 08/09/2013 71520 Hyperbaric Oxygen Therapy By Physician Completed 08/09/2013 66287 Removal Devitalization Tissue Wound Less Than Equal 20 Completed Square CM 08/08/2013 32709 Hyperbaric Oxygen Therapy By Physician Completed 08/02/2013 92348 Hyperbaric Oxygen Therapy By Physician Completed 08/02/2013 34913 Removal Devitalization Tissue Wound Less Than Equal 20 Completed Square CM 08/01/2013 97147 Hyperbaric Oxygen Therapy By Physician Completed 07/31/2013 11373 Hyperbaric Oxygen Therapy By Physician Completed 10/21/2011 49207 Inject/Drain Joint/Bursa Small W/O US Completed 03/24/2011 92299 Rad Shoulder Comp, Min. 2 Views Completed 03/24/2011 74854 Inject/Drain Joint/Bursa Major W/O US Completed 04/04/2009 67351 Stress ECHO Interpretation/Report Hospital Completed 04/04/2009 81973 ECHO Transthorasic Realtime 2D W Doppler & Color Flow Hosp Completed 04/04/2009 67547 Treadmill Interp/Report Only Completed 04/04/2009 00666 Stress Test Supervsn W/Out I/R Completed Encounters Type Date Location Provider Dx Diagnosis Office Visit 06/05/[address] [facility] Sadi J90 Pleural effusion , 9:48a Assoc,owen Smart MD not elsewhere Hospitalists classified D63.8 Anemia in other chronic diseases classified elsewhere I73.9 Peripheral vascular disease, unspecified Office Visit 06/05/2018 2:20p Pulmonology And Saranya Filipe JSarita Pleural Sleep Services Of MD alves, not Manager Personnel Selection elsewhere classified Office Visit 06/04/2018 9:47a [facility] Ector Avitia J90 Pleural Assoc,owen Smart MD effusion, not Hospitalists elsewhere classified I73.9 Peripheral vascular disease, unspecified Office Visit 06/03/2018 9:47a [facility] Ector Avitia J90 Pleural Assoc,owen Smart MD effusion, not Hospitalists elsewhere classified I73.9 Peripheral vascular disease, unspecified Office Visit 06/03/2018 2:06p Pulmonology And Saranya J90 Pleural effusion, Sleep Services Of MD Filipe not elsewhere Manager Personnel Selection classified R91.8 Other nonspecific abnormal finding of lung field Office Visit 06/02/2018 9:46a [facility] Mandi Doll, J90 Pleural effusion, Assoc,owen TYLER not elsewhere Hospitalists classified I10 Essential (primary) hypertension Office Visit 07/11/2015 10:28a [facility] Bryce Briggs, K56.69 Other intestinal Assocowen M.D. 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 right shoulder Office Visit 09/11/2014 Orthopedic Liana 726.10 Bursae & Tendon 1:15p Services Of Lipbarbara, Disorders Shoulder C.M.AAnnie RPA-C Region Unspec Office Visit 08/07/2014 [facility] Bryce Briggs, R10.11 Right upper quadrant 9:57a Assowen acosta M.D. pain Hospitalists 789.01 Pain Abdominal Right Upper Quadrant 560.9 Intestinal Obstruction Unspec 560.9 Intestinal Obstruction Unspec 786.50 Pain Chest Unspec Office Visit 05/20/2014 10:00a Orthopedic Mekhi Matias, 726.10 Bursae & Tendon Services Of Wilver [place] Disorders Shoulder Region Unspec 726.10 Bursae & Tendon Disorders Shoulder Region Unspec 715.91 Osteoarthrosis Unspec Genlzd Or Localized Shoulder 715.31 Osteoarthrosis Localzd Not Spec Prime Or 2Ndy Shoulder 715.31 Osteoarthrosis Localzd Not Spec Prime Or 2Ndy Shoulder Office Visit 11/15/2013 3:06p [facility] Jessica 560.9 Intestinal Assoc,owen Varela M.D. Obstruction Hospitalists Unspec 401.9 Hypertension Unspec 272.4 Hyperlipidemia Other Unspec Office Visit 11/14/2013 3:05p [facility] Jessica 560.9 Intestinal Assoc,owen Varela M.D. Obstruction Hospitalists Unspec 401.9 Hypertension Unspec 272.4 Hyperlipidemia Other Unspec Office Visit 11/13/2013 3:03p [facility] Kai 560.9 Intestinal Assoc,owen Leiva, N.Brittany Obstruction Hospitalists Unspec 272.4 Hyperlipidemia Other Unspec 401.9 Hypertension Unspec 276.51 Dehydration Office 07/26/2013 Wound Care Dandre Flores 707.15 Ulcer Of Other Part Of Visit 1:04p Center AT [facility] Tre Oliver Foot Office 10/21/2011 Orthopedic Mekhi Matias, 842.12 Sprains & Strains Hand Visit 11:00a Services Of Tre Metacarpophalangeal Wilver (Joint) 716.94 Arthropathy Unspec Hand 711.94 Arthritis Unspec Infective Hand Office Visit 03/24/2011 10:15a Orthopedic Mekhi Matias, 726.10 Bursae & Tendon Services Of Wilver [place] Disorders Shoulder Region Unspec 716.96 Arthropathy Unspec Lower Leg Office Visit 05/01/2010 Orthopedic Sarai 726.33 Bursitis 9:30a Services Of Wilver Roth M.D. Oletiffanie Office Visit 04/07/2010 Orthopedic Sarai 726.33 Bursitis 2:00p Services Of Wilver Roth M.D. Oletiffanie Office Visit 04/02/2010 Orthopedic Sarai 726.33 Bursitis 9:45a Services Of Tre Welsh Office Visit 04/04/2009 [facility] Jessica Beck, 786.59 Pain Chest 1:30a owen Chaudhry M.D. Other Hospitalists [facility], 786.50 Pain Chest 12:15a owen Chaudhry M.D. Unspec Hospitalists Plan of Treatment 06/20/2018 - ANKIT Harley90 Pleural effusion, not elsewhere classifiedNew Xrays:US Thoracentesis, Ordered: 06/20/18Follow up:2 weeks
--- OUTSIDE RECORDS SUMMARY | 2018-07-10 16:26 | XMS REPORT | Continuity of Care Document ---
:1930 External Reference #:[id number] Author Name Radha Mast Care Team Providers Name Role Phone Tani Mills MD Primary Care Physician Unavailable Payers Date Identification Numbers Payment Provider Subscriber Effective: 2005 Policy Number: [id number] Medicare Melia Sesay PayID: [id number] [address] [place] [address] Effective: 2011 Policy Number: [id number] BS [employer]ets Melia Sesay PayID: [id number] [address] [address] [place] [address] Expires: 2009 Policy Number: [id number] BS Of POLLO Sesay PayID: [id number] [address] [address] [place] [address] Effective: 2009 Policy Number: [id number] BS Of PO[place]O Sesay Expires: 2011 PayID: [id number] [address] [address] [place] [address] Advance Directives Description No Information Available Problems Description No Information Family History Date Family Member(s) Observation Comments General Heart Disease Social History Type Date Description Comments Sex Unknown Marital Status Lives With Spouse Occupation Retired ETOH Use Occasionally consumes alcohol Tobacco Use Start: Unknown End: Patient is a former 6-8 year 1PPD Unknown smoker smoking history Smoking Status Reviewed: 07/03/18 Patient is a former 6-8 year 1PPD smoker smoking history Exercise Does not exercise Type/Frequency Allergies, Adverse Reactions, Alerts Date Description Reaction Status Severity Comments 05/20/2014 Penicillin Active rash 05/20/2014 Sulfa Antibiotics Active rash 05/20/2014 Vancomycin Active itching rash 05/20/2014 Antibacterial Soap Active rash 05/20/2014 Motrin Active rash Medications Medication Date Status Form Strength Qnty SIG Indications Ordering Provider Pantoprazole Active Tablets DR 40mg 1 by mouth Unknown Sodium 0 every day Lorazepam Active Tablets 1mg as Unknown 0 directed Famotidine Active Tablets 20mg 1 tab by Unknown 0 mouth twice a day as needed Ondansetron Active Tablets 4mg as needed BEATRIZ Mack 0 MD Robert Celebrex Hx Capsules 100mg as Unknown 0 - directed 6 Gabapentin Hx Capsules 100mg as Unknown 0 - directed 6 Lisinopril Hx Tablets 20mg 1 by mouth Unknown 0 - every day Unknown Simvastatin Hx Tablets 40mg 1 by mouth Unknown 0 - every Unknown night at bedtime Caltrate 600+D Hx as Unknown 0 - directed Unknown Aspirin Low Hx Tablets 81mg 1 by mouth Unknown Dose 0 - every day Unknown Pepcid Hx as Unknown 0 - directed Unknown Plavix Hx Tablets 75mg 1 by mouth Unknown 0 - every day Unknown Probiotic Hx Capsules 1 by mouth Unknown Daily 0 - every day Unknown Medications Administered in Office Medication Date Status [...] Available Vital Signs Date Vital Result Comment 07/03/2018 11:35am Height 61.5 inches 5'1.50" Weight 97.00 lb Heart Rate 60 /min BP Systolic Sitting 118 mmHg BP Diastolic Sitting 62 mmHg Respiratory Rate 16 /min Body Temperature 98.7 F BMI (Body Mass Index) 18.0 kg/m2 06/20/2018 11:33am Height 62 inches 5'2" Weight [...] Date Facility Test Result H/L Range Note Laboratory test 06/21/2018 [facility] SEE RESULT [address] [place] [address] [phone] Order 06/20/2018 Administrative Support Clerk In-House 6 Minute Walk <pending> Laboratory test 06/16/2018 [facility] SEE RESULT [address] [place] [address] [phone] Platelet Count 06/16/2018 [facility] Platelet Count 351 10^3/uL N [address] [place] [address] [phone] Mean Platelet Volume 8.3 fL N 7.4-10.4 Inr/Protime 06/16/2018 [facility] Inr 0.96 N 0.77-1.[address] [place] [address] [phone] Laboratory test 06/16/2018 [facility] Partial 30.2 seconds N 26.0-36.[address] [place] [address] PTT [phone] 1 SEE RESULT BELOW Name: MELIA SESAY : [address]: Saranya Dent MD Acct: [id number] Unit: [id number] AGE: 87 Location: OR Re06/21/18 SEX: F Status: REG [facility] [place] [place] SPEC: [id number] NIYAH: 06/21/18- SUBM DR: Saranya Dent MD REQ: [id number] RECD: 06/21/18-1320 STATUS: SOUT _ ORDERED: NG THIN LAYER FINAL DIAGNOSIS Pleural effusion, right, thoracentesis: --Negative for malignant cells. --Inflammation. 1. PLEURAL - RIGHT PLEURAL FLUID CLINICAL HISTORY Right pleural fluid. GROSS DESCRIPTION 1500 ml of cloudy orange fluid. Signed by and Reported on: Dev Wall MD 1632 END OF REPORT DEPARTMENT OF PATHOLOGY, [address] [place] [address] Dev Wall M.D. Director [facility] # [id number] 2 SEE RESULT BELOW Name: MELIA SESAY : [address]: Terra Trent MD Acct: [id number] Unit: [id number] AGE: 87 Location: Re06/16/18 SEX: F Status: REG REF SPEC: [id number] NIYAH: 06/16/18-[address]: Terra Trent MD REQ: [id number] RECD: 06/16/18-403 STATUS: JEAN-PAUL JAIMES DR: Ronnie Enrique MD _ ORDERED: FNA-IMG GUID BX, LEVEL 4, CYTO ADEQ-1ST P, IMMUNO-FIRST, IMMUNO- ADDL/2, IMMUNO-QUANT FINAL DIAGNOSIS Lung, right, ultrasound guided fine needle aspiration: -- Malignant. -- Squamous cell carcinoma Comment: The following immunochemical stains are performed with appropriate controls on formalin fixed cell block material. CK5/6 positive P63 negative PDL 1 5% tumor, 0% lymphocytes ALK negative Gene sequencing study for targeted therapies are pending on air dried smears and will be reported in an addendum. Dr. Lockett has reviewed this case and concurs. A cell block was prepared in the evaluation of this specimen. Smears and cell block reveal similar findings. LUNG RIGHT - US GUIDED RIGHT PLEURAL NODULE FINE NEEDLE ASPIRATION CONTINUED ON NEXT PAGE DEPARTMENT OF PATHOLOGY, [address] [place] [address] Dev Wall M.D. Director [facility] # [id number] RUN DATE: 06/20/18 [facility] LIVE PAGE 2 Patient: MELIA SESAY [id number] (Continued) CLINICAL HISTORY (Continued) CLINICAL HISTORY 1.8 x 1.1 x 1.9 cm right lung nodule. IMMEDIATE INTERPRETATION Pass 1-3 adequate GROSS DESCRIPTION Ultrasound guided, fine needle aspiration x 3 passes with 2 Alcohol fixed slide(s), 6 Air dried slide(s) and needle rinse in formalin for cell block. Signed by and Reported on: Dev Wall MD 1741 END OF REPORT DEPARTMENT OF PATHOLOGY, [address] [place] [address] Dev Wall M.D. Director [facility] # [id number] Procedures Date Code Description Status 06/21/2018 18964 Thoracentesis W/ Img Guidance Completed 06/20/2018 04710 Pulmonary Stress Testing[facility] Inc Measurement Heart Rate, Completed Oximetry 06/05/2018 91584 Thoracentesis W/ Img Guidance Completed 04/28/201665762 Inject/Drain Joint/Bursa Major W/O US Completed 07/30/201562271 Inject/Drain Joint/Bursa Major W/O US Completed 02/10/201562814 Inject/Drain Joint/Bursa Major W/O US Completed 09/11/201417336 Inject/Drain Joint/Bursa Major W/O US Completed 05/20/2014 29401 Rad Shoulder Comp, Min. 2 Views Completed 05/20/2014 Inject/Drain Joint/Bursa Major W/O US Completed 09/10/2013 60251 Hyperbaric Oxygen Therapy By Physician Completed 09/06/2013 20216 Hyperbaric Oxygen Therapy By Physician Completed 09/04/2013 96863 Hyperbaric Oxygen Therapy By Physician Completed 08/30/2013 91064 Hyperbaric Oxygen Therapy By Physician Completed 08/30/2013 73232 Removal Devitalization Tissue Wound Less Than Equal 20 Completed Square CM 08/29/2013 84573 Hyperbaric Oxygen Therapy By Physician Completed 08/28/2013 21734 Hyperbaric Oxygen Therapy By Physician Completed 08/23/2013 31030 Hyperbaric Oxygen Therapy By Physician Completed 08/22/2013 35211 Hyperbaric Oxygen Therapy By Physician Completed 08/21/2013 11932 Hyperbaric Oxygen Therapy By Physician Completed 08/16/2013 82258 Removal Devitalization Tissue Wound Less Than Equal 20 Completed Square CM 08/16/2013 86154 Hyperbaric Oxygen Therapy By Physician Completed 08/15/2013 17118 Hyperbaric Oxygen Therapy By Physician Completed 08/14/2013 83454 Hyperbaric Oxygen Therapy By Physician Completed 08/10/2013 01642 Hyperbaric Oxygen Therapy By Physician Completed 08/09/2013 66187 Hyperbaric Oxygen Therapy By Physician Completed 08/09/2013 70648 Removal Devitalization Tissue Wound Less Than Equal 20 Completed Square CM 08/08/2013 94553 Hyperbaric Oxygen Therapy By Physician Completed 08/02/2013 37372 Hyperbaric Oxygen Therapy By Physician Completed 08/02/2013 21300 Removal Devitalization Tissue Wound Less Than Equal 20 Completed Square CM 08/01/2013 38359 Hyperbaric Oxygen Therapy By Physician Completed 07/31/2013 60053 Hyperbaric Oxygen Therapy By Physician Completed 10/21/2011 41880 Inject/Drain Joint/Bursa Small W/O US Completed 03/24/2011 04315 Rad Shoulder Comp, Min. 2 Views Completed 03/24/2011 75760 Inject/Drain Joint/Bursa Major W/O US Completed 04/04/2009 43140 Stress ECHO Interpretation/Report Hospital Completed 04/04/2009 26352 ECHO Transthorasic Realtime 2D W Doppler & Color Flow Hosp Completed 04/04/2009 86434 Treadmill Interp/Report Only Completed 04/04/2009 87989 Stress Test Supervsn W/Out I/R Completed Encounters Type Date Location Provider Dx Diagnosis Office Visit 06/20/2018 Pulmonology And German Harley Pleural effusion, 11:00a Sleep Services Of not elsewhere Administrative Support Clerk classified Office Visit 06/05/2018 [facility] Ector Avitia J90 Pleural effusion , 9:48a Assoc,pc MD Berry not elsewhere Hospitalists classified D63.8 Anemia in other chronic diseases classified elsewhere I73.9 Peripheral vascular disease, unspecified Office Visit 06/05/2018 2:20p Pulmonology And Saranya Filipe JSarita Pleural Sleep Services Of MD alves, not Administrative Support Clerk elsewhere classified Office Visit 06/04/2018 9:47a [facility] Ector Avitia J90 Pleural Assoc,owen Smart MD effusion, not Hospitalists elsewhere classified I73.9 Peripheral vascular disease, unspecified Office Visit 06/03/2018 9:47a [facility] Ector Avitia J90 Pleural Assoc,owen Smart MD effusion, not Hospitalists elsewhere classified I73.9 Peripheral vascular disease, unspecified Office Visit 06/03/2018 2:06p Pulmonology And Saranya J90 Pleural effusion, Sleep Services Of MD Filipe not elsewhere Administrative Support Clerk classified R91.8 Other nonspecific abnormal finding of lung field Office Visit 06/02/2018 9:46a [facility] Mandi Doll J90 Pleural effusion, Assoc,owen TYLER not elsewhere Hospitalists classified I10 Essential (primary) hypertension [facility] K56.69 Other intestinal Assoc,owen [place] obstruction Hospitalists K21.9 Gastro-esophageal reflux disease without esophagitis I10 Essential (primary) hypertension Office Visit 02/10/2015 Orthopedic Mekhi Matias, 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 right shoulder Office Visit 09/11/2014 Orthopedic Liana 726.10 Bursae & Tendon 1:15p Services Of Carly, Disorders Shoulder C.M.A. RPA-C Region Unspec Office Visit 08/07[facility]2014 [facility], R10.11 Right upper quadrant 9:57a Assoc,pc Tre pain Hospitalists 789.01 Pain Abdominal Right Upper Quadrant 560.9 Intestinal Obstruction Unspec 560.9 Intestinal Obstruction Unspec 786.50 Pain Chest Unspec Office Visit 05/20/2014 10:00a Orthopedic Mekhi Matias, 726.10 Bursae & Tendon Services Of C.M.A. Tre Disorders Shoulder Region Unspec 726.10 Bursae & Tendon Disorders Shoulder Region Unspec 715.91 Osteoarthrosis Unspec Genlzd Or Localized Shoulder 715.31 Osteoarthrosis Localzd Not Spec Prime Or 2Ndy Shoulder 715.31 Osteoarthrosis Localzd Not Spec Prime Or 2Ndy Shoulder Office Visit 11/15/2013 3:06p [facility] Jessica 560.9 Intestinal Assoc,owen Varela M.D. Obstruction Hospitalists Unspec 401.9 Hypertension Unspec 272.4 Hyperlipidemia Other Unspec Office Visit 11/14/2013 3:05p [facility] Jessica 560.9 Intestinal Assoc,owen Varela M.D. Obstruction Hospitalists Unspec 401.9 Hypertension Unspec 272.4 Hyperlipidemia Other Unspec Office Visit 11/13/2013 3:03p [facility] Kai 560.9 Intestinal Assoc,owen Leiva N.P. Obstruction Hospitalists Unspec 272.4 Hyperlipidemia Other Unspec 401.9 Hypertension Unspec 276.51 Dehydration Office 07/26/2013 Wound Care Dandre Flores 707.15 Ulcer Of Other Part Of Visit 1:04p Center [facility] [place] Tre Oliver Foot Office 10/21/2011 Orthopedic Mekhi [...] Orthopedic Sarai 726.33 Bursitis 9:30a Services Of Tre Welsh Office Visit 04/07/2010 Orthopedic Sarai 726.33 Bursitis 2:00p Services Of Tre Welsh Office Visit 04/02/2010 Orthopedic Sarai 726.33 Bursitis 9:45a Services Of Tre Welsh Office Visit 04/04/2009 [facility] Jessica Beck, 786.59 Pain Chest 1:30a Assocowen M.D. Other Hospitalists Office Visit 04/03/2009 [facility] Viv, 786.50 Pain Chest 12:15a owen Chaudhry M.D. [facility] Hospitalists Plan of Treatment Future Appointment(s):07/07/2018 11:45 am - Saranya Dent MD at Pul[facility]ology [facility]07/03/2018 - Don Mejia MD, FACSJ90 Pleural effusion , not elsewhere classified
[2018-07-10 19:43] LABS: ABS Basophils 0 10^3/ul (0-0.2); ABS Eosinophils 0 10^3/ul (0-0.6); ABS Lymphocytes 0.7 10^3/ul (1.0-4.8); ABS Monocytes 0.9 10^3/ul (0-0.8); ABS Neutrophils 4.6 10^3/ul (1.5-7.7); ABS Nucleated RBC 0 10^3/ul; Eosinophil % 0.2 %; Hematocrit 34 % (33-41); Hemoglobin 11.3 g/dL (12.0-16.0); Lymphocyte % 11.1 %; Mean Corpuscular HGB Conc 33 g/dL (31-36); Mean Corpuscular Hemoglobin 30 pg (27-31); Mean Corpuscular Volume 89 fL (80-97); Mean Platelet Volume 8.2 fL (7.4-10.4); Nucleated Red Blood Cells % 0; Platelet Count 254 10^3/uL (150-450); Red Blood Count 3.85 10^6 /uL (3.70-4.87); Red Cell Distribution Width 17 % (10.5-15); White Blood Count 6.2 10^3/uL (3.5-10.8)
--- NOTE | 2018-07-10 19:46 | ED ---
Abdominal Pain/Female - HPI Summary HPI Summary: Pt is an 87 y/o F presenting to the ED with a chief complaint of central abd pain onset about 3-4 wks ago that has been worse since today. Her sx include an episode of diarrhea and vomiting, lasting about 1.5 hours, nausea, worsening central abd pain, and weight loss. She denies fever. Presently, she feels intermittently nauseous but has not vomited or had diarrhea since being in the ED. She also has a hx of lung cancer, including a pneumocatheter that she drains about every 3-4 days. She had a normal resulting endoscopy about 2.5 weeks ago. - History of Current Complaint Chief Complaint: EDAbdPain Stated Complaint: NAUSEA/ABD PAIN/DIARRHEA PER PT Time Seen by Provider: 07/10/18 19:43 Hx Obtained From: Patient Onset/Duration: Gradual Onset, Lasting Weeks, Still Present, Worse Since - today Timing: Constant Severity Initially: Mild Severity Currently: Mild Pain Intensity: 3 Pain Scale Used: 0-10 Numeric Location: Diffuse Radiates: No Character: Cramping Aggravating Factor(s): Other: - vomiting/diarrhea episode Alleviating Factor(s): Nothing Associated Signs and Symptoms: Positive: Nausea, Vomiting, Diarrhea, Other: - weight loss. Negative: Fever Allergies/Adverse Reactions: Allergies Allergy/AdvReac Type Severity Reaction Status Date / Time ibuprofen Allergy Itching Verified 07/10/18 16:15 Penicillins Allergy Rash Verified 07/10/18 16:15 Sulfa (Sulfonamide Allergy Rash Verified 07/10/18 16:15 Antibiotics) vancomycin Allergy Hives Verified 07/10/18 16:15 antibacterial soaps Allergy Hives Uncoded 07/03/18 13:17 Home Medications: Home Medications Acetaminop/Codeine 30 MG TAB* [Tylenol/Codeine 30 MG TAB*] 1 tab PO Q6H PRN [History Confirmed 07/10/18] Ondansetron TAB* [Zofran 4 MG Tab*] 1 tab PO Q6H PRN 07/10/18 [History Confirmed 07/10/18] PMH/Surg Hx/FS Hx/Imm Hx Previously Healthy: No Endocrine/Hematology History: Denies: Hx Anticoagulant Therapy, Hx Diabetes, Hx Thyroid Disease Cardiovascular History: Reports: Hx Coronary Artery Disease, Hx Hypercholesterolemia, Hx Hypertension - ON MEDS Denies: Hx Congestive Heart Failure Respiratory History: Reports: Hx Seasonal Allergies Denies: Hx Asthma, Hx Chronic Obstructive Pulmonary Disease (COPD) GI History: Reports: Hx Gall Bladder Disease, Hx Gastroesophageal Reflux Disease , Hx Obstructive Bowel, Other GI Disorders - SBO Denies: Hx Ulcer History: Denies: Hx Renal Disease Musculoskeletal History: Reports: Hx Arthritis, Hx Rheumatoid Arthritis, Hx Osteoporosis Sensory History: Reports: Hx Contacts or Glasses, Hx Vision Problem Denies: Hx Deafness, Hx Hearing Aid Opthamlomology History: Reports: Hx Contacts or Glasses, Hx Vision Problem Psychiatric History: Reports: Hx Anxiety - Cancer History Hx Chemotherapy: No Hx Radiation Therapy: No - Surgical History Surgery Procedure, Year, and Place: SALVIARY GLAND REMOVED-SKY 1999; cholecystectomy, hysterectomy; cataracts;. total knee replacements (right and left)-2007 [facility]. BLOOD CLOT REMOVED FROM L LEG 05/2013. Left popliteal artery bypass Hx Anesthesia Reactions: No - Immunization History Date of Tetanus Vaccine: utd Date of Influenza Vaccine: fall 2017 Infectious Disease History: No Infectious Disease History: Reports: Hx Shingles Denies: Hx Hepatitis, Hx Human Immunodeficiency Virus (HIV), Traveled Outside the [place] in Last 30 Days - Family History Known Family History: Negative: Renal Disease - Social History Alcohol Use: None Alcohol Amount: occ beer Hx Substance Use: No Substance Use Type: Reports: None Hx Tobacco Use: Yes Smoking Status (MU): Former Smoker Have You Smoked in the Last Year: No Review of Systems Constitutional: Other - weight loss Negative: Fever Positive: Abdominal Pain, Vomiting, Diarrhea, Nausea All Other Systems Reviewed And Are Negative: Yes Physical Exam - Summary Physical Exam Summary: VITAL SIGNS: Reviewed. GENERAL: Patient is a well-developed and nourished female who is lying comfortable in the stretcher. Patient is not in any acute respiratory distress. HEAD AND FACE: No signs of trauma. No ecchymosis, hematomas or skull depressions. No sinus tenderness. EYES: PERRLA, EOMI x 2, No injected conjunctiva, no nystagmus. EARS: Hearing grossly intact. Ear canals and tympanic membranes are within normal limits. MOUTH: Oropharynx within normal limits. NECK: Supple, trachea is midline, no adenopathy, no JVD, no carotid bruit, no c- spine tenderness, neck with full ROM. CHEST: Symmetric, no tenderness at palpation LUNGS: Clear to auscultation bilaterally. No wheezing or crackles. Right pneumocatheter CVS: Regular rate and rhythm, S1 and S2 present, no murmurs or gallops appreciated. ABDOMEN: R diffuse abd tenderness. No signs of distention. No rebound no guarding, and no masses palpated. Bowel sounds are normal. EXTREMITIES: FROM in all major joints, no edema, no cyanosis or clubbing. NEURO: Alert and oriented x 3. No acute neurological deficits. Speech is normal and follows commands. SKIN: Dry and warm Triage Information Reviewed: Yes Vital Signs On Initial Exam: Initial Vitals Temp Pulse Resp BP Pulse Ox 97.4 F 75 16 105/52 97 07/10/18 16:08 07/10/18 16:08 07/10/18 16:08 07/10/18 16:08 07/10/18 16:08 Vital Signs Reviewed: Yes Diagnostics - Vital Signs Vital Signs Temp Pulse Resp BP Pulse Ox 07/10/18 18:38 97.6 F 73 16 127/43 96 07/10/18 16:08 97.4 F 75 16 105/52 97 - Laboratory Lab Results: Lab Results 07/10/18 Range/Units 19:35 WBC 6.2 (3.5-10.8) 10^3/uL RBC 3.85 (3.70-4.87) 10^6 /uL Hgb 11.3 L (12.0-16.0) g/dL Hct 34 (33-41) % MCV 89 (80-97) fL MCH 30 (27-31) pg MCHC 33 (31-36) g/dL RDW 17 H (10.5-15) % Plt Count 254 (150-450) 10^3/uL MPV 8.2 (7.4-10.4) fL Neut % (Auto) 74.3 % Lymph % (Auto) 11.1 % [place] % (Auto) 14.3 % Eos % (Auto) 0.2 % Baso % (Auto) 0.1 % Absolute Neuts (auto) 4.6 (1.5-7.7) 10^3/ul Absolute Lymphs (auto) 0.7 L (1.0-4.8) 10^3/ul Absolute Monos (auto) 0.9 H (0-0.8) 10^3/ul Absolute Eos (auto) 0 (0-0.6) 10^3/ul Absolute Basos (auto) 0 (0-0.2) 10^3/ul Absolute Nucleated RBC 0 10^3/ul Nucleated RBC % 0 Result Diagrams: 07/10/18 19:35 07/10/18 19:35 Lab Statement: Any lab studies that have been ordered have been reviewed, and results considered in the medical decision making process. - Radiology Abd x-ray Radiology Interpretation Completed By: ED Physician Summary of Radiographic Findings: No acute process. Pending official radiology report. - CT CT Abd/pelv CT Interpretation Completed By: Radiologist Summary of CT Findings: 1. 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 No additional findings to correlate with patient's symptomatology. 2. Bosniak type I renal cyst. No followup indicated. 3. Distal colonic diverticulosis. ED physician has reviewed this report. - EKG 1942 Cardiac Rate: NL - 74bpm EKG Rhythm: Sinus Rhythm ST Segment: Normal Ectopy: None Summary of EKG Findings: RBBB. Abdominal Pain Fem Course/Dx - Course Course Of Treatment: Pt is an 87 y/o F presenting to the ED with a chief complaint of central abd pain onset about 3-4 wks ago that has been worse since today. Her sx include an episode of diarrhea and vomiting, lasting about 1.5 hours, nausea, worsening central abd pain, and weight loss. She denies fever. She has a hx of lung cancer w/ a pneumocatheter that is drained every 3-4 days, and she had a normal resulting endoscopy about 2.5 wks ago. The pt will be sent home with a dx of acute gastroenteritis and instructions to take zofran as needed and increase oral fluid intake. - Diagnoses Provider Diagnoses: Acute gastroenteritis Discharge - Sign-Out/Discharge Documenting (check all that apply): Patient Departure Patient Received Moderate/Deep Sedation with Procedure: No - Discharge Plan Condition: Stable Disposition: HOME Referrals: Tani Mills MD [Primary Care Provider] - Additional Instructions: Please follow up with your primary care provider in 2-3 days. Take zofran as needed for nausea, and increase your oral fluid intake. Return to the emergency department with any new or worsening symptoms. - Attestation Statements Document Initiated by Scribe: Yes Documenting Scribe: Noemi Quinones Provider For Whom Scribe is Documenting (Include Credential): Izaiah Devi MD. Scribe Attestation: Noemi Flores, scribed for Izaiah Devi MD. on 07/10/18 at 2212. Status of Scribe Document: Ready
[2018-07-10] MEDS ORDERED: NS 0.9% 1000 ML** 1,000 ML IV ONE (19:59)
[2018-07-10 20:00] LABS: ALT 12 U/L (7-52); AST 22 U/L (13-39); Albumin 2.8 g/dL (3.2-5.2); Albumin/Globulin Ratio 1.1 (1-3); Alkaline Phosphatase 142 U/L (34-104); Amylase 28 U/L (29-103); Anion Gap 7 mmol/L (2-11); BUN/Creatinine Ratio 24.2 (8-20); Blood Urea Nitrogen 23 mg/dL (6-24); C Reactive Protein 24.16 mg/L (<8.01); CO2 Carbon Dioxide 28 mmol/L (22-32); Calcium 8.6 mg/dL (8.6-10.3); Chloride 100 mmol/L (101-111); EGFR African American 67.3 (>60); EGFR Non-African American 55.6 (>60); Globulin 2.6 g/dL (2-4); Glucose 133 mg/dL (70-100); INR 0.94 (0.77-1.02); Potassium 4.2 mmol/L (3.5-5.0); Sodium 135 mmol/L (135-145); Total Protein 5.4 g/dL (6.4-8.9)
[2018-07-10] MEDS ORDERED: Pantoprazole IV* 40 MG IV ONE (20:00)
[2018-07-10] MEDS ORDERED: Ondansetron INJ* 2 MG/ML VIAL IV ONE (20:00)
[2018-07-10 20:03] LABS: Troponin I 0.01 ng/mL (<0.04)
[2018-07-10] MEDS ORDERED: Iodixanol* (CONTRAST) 320 MG/ML 100 ML SDV IV ONE (20:19)
[2018-07-10 21:07] LABS: Urine Appearance Cloudy; Urine Bacteria 1+ (Absent); Urine Bilirubin Negative (Negative); Urine Blood 1+ (Negative); Urine Color Amber; Urine Glucose Negative (Negative); Urine Ketones Negative (Negative); Urine Nitrite Negative (Negative); Urine Protein Negative (Negative); Urine Red Blood Cell 1+(3-5/hpf) (Absent); Urine Specific Gravity 1.025 (1.010-1.030); Urine Squamous Epithelial Cell Present (Absent); Urine Urobilinogen Negative (Negative); Urine White Blood Cell 2+(11-20/hpf) (Absent)
[2018-07-10 23:22] VITALS: BP 135/75
--- NOTE | 2018-07-13 13:28 | PN ---
Progress Note - Progress Note Date of Service: 07/10/18 Note: Pt. seen 07/10 for abd. pain. Final urine culture today is growing >100k e. coli. I called and spoke with pt. today around 1320. Rx sent to hospital pharmacy and pt.'s friend is to pick it up for her. Will f.u with PCP.
== END 2018-07-10 23:21 | disposition home or self-care (01) ==
LOC: ED 16:04
DX: K52.9 Noninfective gastroenteritis and colitis, unspecified (principal); R11.2 Nausea with vomiting, unspecified; R19.7 Diarrhea, unspecified; Z88.0 Allergy status to penicillin; Z88.2 Allergy status to sulfonamides; I25.10 Atherosclerotic heart disease of native coronary artery without angina pectoris; I10 Essential (primary) hypertension; Z87.891 Personal history of nicotine dependence
CPT/HCPCS: 36415; 74019; 74177; 80053; 81003; 81015; 82150; 83605; 83690; 84484; 85025; 85610; 86140; 87040; 87077; 87086; 87186; 93005; 96361; 96374; 96375; 99283; J2405; Q9967

== ENCOUNTER 2018-07-16 20:30 | Emergency (ER) | payer MEDICARE, BC ==
--- NOTE | 2018-07-16 21:06 | ED ---
Abdominal Pain/Female - HPI Summary HPI Summary: This patient is an 87 year old F brought in by ambulance to [facility] accompanied by family with a chief complaint of epigastric abd pain that began earlier today. The patient rates the pain 10/10 in severity. Symptoms aggravated by nothing. Symptoms alleviated by nothing. Patient denies changes in appetite. - History of Current Complaint Chief Complaint: EDAbdPain Stated Complaint: ABD PAIN, VOMITING PER EMS Time Seen by Provider: 07/16/18 21:00 Hx Obtained From: Patient ?: No Onset/Duration: Sudden Onset, Lasting Hours, Still Present Timing: Constant Severity Initially: Severe Severity Currently: Severe Pain Intensity: 10 Pain Scale Used: 0-10 Numeric Location: Epigastric Radiates: No Aggravating Factor(s): Nothing Alleviating Factor(s): Nothing Allergies/Adverse Reactions: Allergies Allergy/AdvReac Type Severity Reaction Status Date / Time ibuprofen Allergy Itching Verified 07/10/18 16:15 Penicillins Allergy Rash Verified 07/10/18 16:15 Sulfa (Sulfonamide Allergy Rash Verified 07/10/18 16:15 Antibiotics) vancomycin Allergy Hives Verified 07/10/18 16:15 antibacterial soaps Allergy Hives Uncoded 07/03/18 13:17 PMH/Surg Hx/FS Hx/Imm Hx Previously Healthy: No Endocrine/Hematology History: Denies: Hx Anticoagulant Therapy, Hx Diabetes, Hx Thyroid Disease Cardiovascular History: Reports: Hx Coronary Artery Disease, Hx Hypercholesterolemia, Hx Hypertension - ON MEDS Denies: Hx Congestive Heart Failure Respiratory History: Reports: Hx Seasonal Allergies Denies: Hx Asthma, Hx Chronic Obstructive Pulmonary Disease (COPD) GI History: Reports: Hx Gall Bladder Disease, Hx Gastroesophageal Reflux Disease , Hx Obstructive Bowel, Other GI Disorders - SBO Denies: Hx Ulcer History: Denies: Hx Renal Disease Musculoskeletal History: Reports: Hx Arthritis, Hx Rheumatoid Arthritis, Hx Osteoporosis Sensory History: Reports: Hx Contacts or Glasses, Hx Vision Problem Denies: Hx Deafness, Hx Hearing Aid Opthamlomology History: Reports: Hx Contacts or Glasses, Hx Vision Problem Psychiatric History: Reports: Hx Anxiety - Cancer History Hx Chemotherapy: No Hx Radiation Therapy: No - Surgical History Surgery Procedure, Year, and Place: SALVIARY GLAND REMOVED-SKY 1999; cholecystectomy, hysterectomy; cataracts;. total knee replacements (right and left)-2007 [facility]. BLOOD CLOT REMOVED FROM L LEG 05/2013. Left popliteal artery bypass Hx Anesthesia Reactions: No - Immunization History Date of Tetanus Vaccine: utd Date of Influenza Vaccine: fall 2017 Infectious Disease History: No Infectious Disease History: Reports: Hx Shingles Denies: Hx Hepatitis, Hx Human Immunodeficiency Virus (HIV), Traveled Outside the [place] in Last 30 Days - Family History Known Family History: Negative: Renal Disease - Social History Occupation: Retired Lives: Alone Alcohol Use: None Alcohol Amount: occ beer Hx Substance Use: No Substance Use Type: Reports: None Hx Tobacco Use: Yes Smoking Status (MU): Former Smoker Have You Smoked in the Last Year: No Review of Systems Negative: Fever Positive: Abdominal Pain, Other - Negative changes in appetite All Other Systems Reviewed And Are Negative: Yes Physical Exam - Summary Physical Exam Summary: VITAL SIGNS: Reviewed. GENERAL: Patient is a well-developed and nourished female who is lying comfortable in the stretcher. Patient is not in any acute respiratory distress. HEAD AND FACE: No signs of trauma. No ecchymosis, hematomas or skull depressions. No sinus tenderness. EYES: PERRLA, EOMI x 2, No injected conjunctiva, no nystagmus. EARS: Hearing grossly intact. Ear canals and tympanic membranes are within normal limits. MOUTH: Oropharynx within normal limits. NECK: Supple, trachea is midline, no adenopathy, no JVD, no carotid bruit, no c- spine tenderness, neck with full ROM. CHEST: Symmetric, no tenderness at palpation LUNGS: Clear to auscultation bilaterally. No wheezing or crackles. R pleural drain. Decreased breath sounds bilaterally. CVS: Regular rate and rhythm, S1 and S2 present, no murmurs or gallops appreciated. ABDOMEN: Soft, non-tender. No signs of distention. No rebound no guarding, and no masses palpated. Bowel sounds are normal. EXTREMITIES: FROM in all major joints, no edema, no cyanosis or clubbing. NEURO: Alert and oriented x 3. No acute neurological deficits. Speech is normal and follows commands. SKIN: Dry and warm Triage Information Reviewed: Yes Vital Signs On Initial Exam: Initial Vitals Temp Pulse Resp BP Pulse Ox 98 F 73 16 167/97 93 07/16/18 20:31 07/16/18 20:31 07/16/18 20:31 07/16/18 20:31 07/16/18 20:31 Vital Signs Reviewed: Yes Diagnostics - Vital Signs Vital Signs Temp Pulse Resp BP Pulse Ox 07/16/18 20:31 98 F 73 16 167/97 93 - Laboratory Lab Statement: Any lab studies that have been ordered have been reviewed, and results considered in the medical decision making process. Re-Evaluation - Re-Evaluation First Eval Re-Evaluation Time: 22:28 Change: Improved Comment: Patient reports her pain has improved Abdominal Pain Fem Course/Dx - Course Course Of Treatment: This patient is an 87 year old F brought in by ambulance to [facility] accompanied by family with a chief complaint of epigastric abd pain that began earlier today. Physical Exam Findings: R pleural drain. Decreased breath sounds bilaterally. The patient has palliative care. She has end stage lung cancer. In the ED course the patient was given fentanyl, fluids, Zofran, and Compazine. Patient will be discharged with prescription for Duragesic and Compazine and with follow up from PCP and her oncologist. The patient is agreeable with this plan. - Diagnoses Provider Diagnoses: Generalized pain, Lung cancer Discharge - Sign-Out/Discharge Documenting (check all that apply): Patient Departure - Discharge home Patient Received Moderate/Deep Sedation with Procedure: No - Discharge Plan Condition: Stable Disposition: HOME Prescriptions: fentaNYL PATCH 25 MCG/HR* [Duragesic PATCH 25 Mcg/Hr*] 25 mcg TRANSDERM Q72H # 10 patch MDD One patch every 3 days. Prochlorperazine TAB* [Compazine Tab*] 10 mg PO Q6H PRN #30 tab PRN Reason: Nausea/Vomiting Patient Education Materials: Pain Management (ED) Referrals: Tani Mills MD [Primary Care Provider] - 2 Days Additional Instructions: FOLLOW UP WITH YOUR ONCOLOGIST RETURN TO THE EMERGENCY DEPARTMENT FOR NEW OR WORSENING SYMPTOMS - Attestation Statements Document Initiated by Scribe: Yes Documenting Scribe: Kirstin Pritchard Provider For Whom Trevor is Documenting (Include Credential): Dr. Izaiah Devi MD Scribe Attestation: Kirstin Flores, scribed for Dr. Izaiah Devi MD on 07/16/18 at [id number]. Status of Scribe Document: Ready
[2018-07-16] MEDS ORDERED: NS 0.9% 1000 ML** 1,000 ML IV ONE (21:07)
[2018-07-16] MEDS ORDERED: fentaNYL PATCH 25 MCG/HR TRANSDERM ONE (21:08)
[2018-07-16] MEDS ORDERED: fentaNYL* 50 MCG/ML 2 ML VIAL (100 MCG VIAL) IV SLOW PU ONE (21:08)
[2018-07-16] MEDS ORDERED: PROCHLORPERAZINE INJ 5 MG/ML 2 ML VIAL IVPB ONE (21:09)
[2018-07-16] MEDS ORDERED: Ondansetron INJ* 2 MG/ML VIAL IV ONE (21:09)
[2018-07-16 23:17] VITALS: BP 153/70
== END 2018-07-16 23:55 | disposition home or self-care (01) ==
LOC: ED 20:30
DX: R10.13 Epigastric pain (principal); C34.90 Malignant neoplasm of unspecified part of unspecified bronchus or lung; Z88.0 Allergy status to penicillin; Z88.2 Allergy status to sulfonamides; I25.10 Atherosclerotic heart disease of native coronary artery without angina pectoris; Z87.891 Personal history of nicotine dependence
CPT/HCPCS: 96374; 96375; 99284; A9270-GY; J0780; J2405; J3010